=== PATIENT | male | born 1970 | race Caucasian/White ===

== ENCOUNTER 2018-04-02 12:38 | Emergency (ER) | payer OTHER ==
[2018-04-02] MEDS ORDERED: NA CHLORIDE 0.9% 0 ML ONE (14:27)
[2018-04-02 14:43] LABS: Absolute Lymphocytes (CBC) 1.1 K/uL (0.7-4.9); Absolute Monocytes 0.4 K/uL (0.1-1.3); Absolute Neutrophil 3.8 K/uL (1.8-8.0); Basophils % 1.8 % (0-1.3); Eosinophils % 1.4 % (0-4.4); Hematocrit 55.8 % (39.6-49.0); Lymphocytes % 20.6 % (15.3-44.8); MCH 27.9 pg (27.0-35.0); MCV 84.6 fL (80-100); MPV 7.9 fL (7.6-11.3); Monocytes % 7.2 % (3.3-12.3); RBC Red Blood Cell Count 6.59 M/uL (4.33-5.43)
[2018-04-02 14:58] LABS: Urine Blood NEGATIVE (NEG); Urine Glucose NEGATIVE (NEG); Urine Protein NEGATIVE (NEG); Urine Specific Gravity 1.025 (1.005-1.030)
[2018-04-02 15:01] LABS: Albumin 4.2 g/dL (3.4-5.0); Bilirubin Direct 0.2 mg/dL (0-0.2); Bilirubin Total 0.7 mg/dL (0.2-1.0); Magnesium 1.8 mg/dL (1.8-2.4); Potassium 4.3 mmol/L (3.5-5.1)
[2018-04-02] MEDS ORDERED: NA CHLORIDE 0.9% 1,000 ML ONE (15:20)
--- NOTE | 2018-04-02 16:30 | RAD REPORT ---
EXAM DESCRIPTION: CT - Abdomen Pelvis W Contrast - 04/02/2018 4:12 pm CLINICAL HISTORY: Abdominal pain. Diarrhea . Left lower quadrant pain COMPARISON: 2014 TECHNIQUE: Computed axial tomography of the abdomen and pelvis was obtained. 100 cc Isovue-300 is ad ministered intravenously. Oral contrast was given. All CT scans are performed using dose optimization technique as appropriate and may include automated exposure control or mA/KV adjustment according to patient size. 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 Largest measures 22 millimeters Spleen, pancreas, adrenals and kidneys appear unremarkable. There is no evidence of diverticulitis Small right inguinal hernia and small to moderate left inguinal hernias contain fat. IMPRESSION: No acute abnormality displayed 1
--- NOTE | 2018-04-02 16:41 | ER ---
Nurse's Notes [facility] Name: John Suarez Age: 47 yrs Sex: Male : 1970 Arrival Date: 04/02/2018 Time: 12:39 Bed 5 Private MD: Ge Holliday Diagnosis: Diarrhea, unspecified Presentation: 04/02 13:03 Presenting complaint: Patient states: Diarrhea since Saturday night. Today he started to aj1 feel light-headed. Patient denies N/V. Denies fever. Reports LLQ abdominal pain. Transition of care: patient was not received from another setting of care. Onset of symptoms was March 31, 2018. Risk Assessment: Do you want to hurt yourself or someone else? Patient reports no desire to harm self or others. Initial Sepsis Screen: Does the patient meet any 2 criteria? No. Patient's initial sepsis screen is negative. Does the patient have a suspected source of infection? Yes: Acute abdominal pain. Care prior to arrival: None. 13:03 Method Of Arrival: Ambulatory aj 13:03 Acuity: JUAN 3 aj1 Triage Assessment: 13:06 General: Appears in no apparent distress. uncomfortable, Behavior is calm, cooperative, aj1 appropriate for age. Pain: Complains of pain in left lower quadrant Pain currently is 5 out of 10 on a pain scale. Neuro: Level of Consciousness is awake, alert, obeys commands. Cardiovascular: Patient's skin is warm and dry. Respiratory: Airway is patent Respiratory effort is even, unlabored, Respiratory pattern is regular, symmetrical. GI: Reports lower abdominal pain, diarrhea, Patient currently denies nausea, vomiting. Historical: - Allergies: 13:06 Cephalexin Monohydrate; aj1 13:06 Hydrocodone-Acetaminophen; aj1 - Home Meds: 13:06 Lisinopril Oral [Active]; Allopurinol Oral [Active]; Paxil Oral [Active]; Ambien Oral aj1 [Active]; - PMHx: 13:06 Gout; Hypertension; Depression; insomnia; aj1 - PSHx: 13:06 Hernia repair; Knee surgery; shoulder surgery; septum surgery; aj1 - Immunization history:: Flu vaccine is not up to date. - Social history:: Smoking status: Patient/guardian denies using tobacco. - Ebola Screening: : Patient denies travel to an Ebola-affected area in the 21 days before illness onset. Screenin:00 Abuse screen: Denies threats or abuse. Denies injuries from another. Nutritional hb screening: No deficits noted. Tuberculosis screening: No symptoms or risk factors identified. Fall Risk None identified. Assessment: 14:00 General: Appears in no apparent distress. uncomfortable, Behavior is calm, cooperative. hb Pain: Pain currently is 5 out of 10 on a pain scale. Neuro: Level of Consciousness is awake, alert, obeys commands, Oriented to person, place, time, situation. Cardiovascular: Capillary refill < 3 seconds Patient's skin is warm and dry. Respiratory: Airway is patent Trachea midline Respiratory effort is even, unlabored, Respiratory pattern is regular, symmetrical, Breath sounds are clear bilaterally. GI: Abdomen is non-distended, Bowel sounds present X 4 quads. Abd is soft and non tender X 4 quads. Reports diarrhea. : No signs and/or symptoms were reported regarding the genitourinary system. EENT: No signs and/or symptoms were reported regarding the EENT system. Derm: No signs and/or symptoms reported regarding the dermatologic system. Skin is pink, warm \T\ dry. Musculoskeletal: No signs and/or symptoms reported regarding the musculoskeletal system. 15:00 Reassessment: Patient appears in no apparent distress at this time. No changes from hb previously documented assessment. Patient and/or family updated on plan of care and expected duration. Pain level reassessed. Patient is alert, oriented x 3, equal unlabored respirations, skin warm/dry/pink. 16:00 Reassessment: Patient appears in no apparent distress at this time. No changes from hb previously documented assessment. Patient and/or family updated on plan of care and expected duration. Pain level reassessed. Patient is alert, oriented x 3, equal unlabored respirations, skin warm/dry/pink. Vital Signs: 13:06 BP 149 / 108; Pulse 89; Resp 18; Temp 98.6; Pulse Ox 95% on R/A; Weight 97.07 kg (R); aj1 Height 5 ft. 10 in. (177.80 cm) (R); Pain 5/10; 14:37 BP 141 / 101 Supine; Pulse 69; Resp 16; Pulse Ox 96% on R/A; dh3 14:39 BP 146 / 111 Sitting; Pulse 81; Resp 17; Pulse Ox 97% on R/A; dh3 14:41 BP 134 / 106 Standing; Pulse 79; Resp 18; Pulse Ox 98% on R/A; dh3 15:30 BP 138 / 102; Pulse 88; Resp 16; Pulse Ox 100% ; hb 13:06 Body Mass Index 30.71 (97.07 kg, 177.80 cm) aj1 ED Course: 12:39 Patient arrived in ED. as 12:39 Ge Holliday MD is Private Physician. as 13:05 Triage completed. aj1 13:06 Arm band placed on Patient placed in waiting room, Patient notified of wait time. aj1 13:45 Kemar Whitehead PA is PHCP. cp 13:45 Abdullahi Pitt MD is Attending Physician. cp 14:25 Urine collected: clean catch specimen, clear. 3 14:27 Initial lab(s) drawn, by me, sent to lab. Inserted saline lock: 18 gauge in right 3 antecubital area, using aseptic technique. Blood collected. 15:11 Obed Denney, RN is Primary Nurse. sg 16:12 CT Abd/Pelvis - W/Contrast: give oral contrast In Process Unspecified. EDMS 16:13 CT completed. Patient tolerated procedure well. Patient moved back from CT. madie Administered Medications: 14:32 Drug: NS 0.9% 1000 ml Route: IV; Rate: 1 bolus; Site: right antecubital; hb 15:15 Drug: NS 0.9% 1000 ml Route: IV; Rate: 1 bolus; Site: right antecubital; hb 15:15 Drug: NS 0.9% 1000 ml Route: IV; Rate: 100 ml/hr; Site: right antecubital; hb Outcome: 16:41 Discharge ordered by MD. cp 17:25 Patient left the ED. hb Signatures: Dispatcher [employer] EDMS Rosita Wood RN RN aj1 Obed Denney, Sandrine Barbosa RN, Corey, PA PA cp Baxter, Heather, RN RN hb Jordan, Nathan nj Herrera, Deanna 3
--- NOTE | 2018-04-02 16:41 | EDPHYS ---
Physician Documentation [facility] Name: John Suarez Age: 47 yrs Sex: Male : 1970 Arrival Date: 04/02/2018 Time: 12:39 Bed 5 Private MD: Ge Holliday ED Physician Abdullahi Pitt HPI: 04/02 14:00 This 47 yrs old Male presents to ER via Ambulatory with complaints of cp Abdominal Pain, Diarrhea. 14:00 The patient presents with abdominal pain. Onset: The symptoms/episode began/occurred 3 cp day(s) ago. Associated signs and symptoms: Pertinent positives: diarrhea, Pertinent negatives: nausea and vomiting, blood in stools, chest pain, constipation, fever, shortness of breath, testicular pain. Historical: - Allergies: 13:06 Cephalexin Monohydrate; aj1 13:06 Hydrocodone-Acetaminophen; aj1 - Home Meds: 13:06 Lisinopril Oral [Active]; Allopurinol Oral [Active]; Paxil Oral [Active]; Ambien Oral aj1 [Active]; - PMHx: 13:06 Gout; Hypertension; Depression; insomnia; aj1 - PSHx: 13:06 Hernia repair; Knee surgery; shoulder surgery; septum surgery; aj1 - Immunization history:: Flu vaccine is not up to date. - Social history:: Smoking status: Patient/guardian denies using tobacco. - Ebola Screening: : Patient denies travel to an Ebola-affected area in the 21 days before illness onset. ROS: 14:05 Constitutional: Negative for body aches, chills, fever, poor PO intake. cp 14:05 Eyes: Negative for injury, pain, redness, and discharge. cp 14:05 ENT: Negative for drainage from ear(s), ear pain, sore throat, difficulty swallowing, difficulty handling secretions. 14:05 Cardiovascular: Negative for chest pain, edema, palpitations. 14:05 Respiratory: Negative for cough, shortness of breath, wheezing. 14:05 Abdomen/GI: Positive for abdominal pain, diarrhea, Negative for nausea and vomiting, vomiting, constipation, anorexia, black/tarry stool, rectal bleeding. 14:05 Back: Negative for radiated pain. 14:05 : Negative for urinary symptoms, testicular pain 14:05 Skin: Negative for cellulitis, rash. 14:05 Neuro: Positive for lightheaded, Negative for altered mental status, headache, syncope, near syncope, weakness. 14:05 All other systems are negative. Exam: 14:12 Constitutional: The patient appears in no acute distress, alert, awake, non-toxic, well cp developed, well nourished. 14:12 Head/Face: Normocephalic, atraumatic. cp 14:12 Eyes: Periorbital structures: appear normal, Conjunctiva: normal, no exudate, no injection, Sclera: no appreciated abnormality, Lids and lashes: appear normal, bilaterally. 14:12 ENT: External ear(s): are unremarkable, Nose: is normal, Mouth: Lips: moist, Oral mucosa: pink and intact, moist, Posterior pharynx: is normal, airway is patent, no erythema, no exudate. 14:12 Neck: ROM/movement: is normal, is supple, without pain, no range of motions limitations, no nuchal rigidity. 14:12 Chest/axilla: Inspection: normal, Palpation: is normal, no crepitus, no tenderness. 14:12 Cardiovascular: Rate: normal, Rhythm: regular. 14:12 Respiratory: the patient does not display signs of respiratory distress, Respirations: normal, no use of accessory muscles, no retractions, no splinting, no tachypnea, labored breathing, is not present, Breath sounds: are clear throughout, no decreased breath sounds, no stridor, no wheezing. 14:12 Abdomen/GI: Inspection: abdomen appears normal, Bowel sounds: active, all quadrants, Palpation: soft, in all quadrants, mild abdominal tenderness, in the left upper quadrant and left lower quadrant, rebound tenderness, is not appreciated, involuntary guarding, is not appreciated. 14:12 Back: pain, is absent, ROM is normal. 14:12 Skin: cellulitis, is not appreciated, no rash present. Vital Signs: 13:06 BP 149 / 108; Pulse 89; Resp 18; Temp 98.6; Pulse Ox 95% on R/A; Weight 97.07 kg (R); aj1 Height 5 ft. 10 in. (177.80 cm) (R); Pain 5/10; 14:37 BP 141 / 101 Supine; Pulse 69; Resp 16; Pulse Ox 96% on R/A; dh3 14:39 BP 146 / 111 Sitting; Pulse 81; Resp 17; Pulse Ox 97% on R/A; dh3 14:41 BP 134 / 106 Standing; Pulse 79; Resp 18; Pulse Ox 98% on R/A; dh3 15:30 BP 138 / 102; Pulse 88; Resp 16; Pulse Ox 100% ; hb 13:06 Body Mass Index 30.71 (97.07 kg, 177.80 cm) aj1 MDM: 13:45 Patient medically screened. cp 14:00 Differential diagnosis: appendicitis, bowel obstruction, diverticulitis, gastritis, cp pancreatitis, Pyelonephritis, Testicular Torsion, Ureterolithiasis, urinary tract infection. 16:40 Data reviewed: vital signs, nurses notes, lab test result(s), radiologic studies, CT cp scan. 16:40 Counseling: I had a detailed discussion with the patient and/or guardian regarding: the cp historical points, exam findings, and any diagnostic results supporting the discharge/admit diagnosis, lab results, radiology results, to return to the emergency department if symptoms worsen or persist or if there are any questions or concerns that arise at home. Response to treatment: the patient's symptoms have markedly improved after treatment, VSS. Pain improved, and as a result, I will discharge patient. Special discussion: Based on the patient's Hx, exam, and Dx evaluation, there is no indication for emergent surgery or inpatient Tx. It is understood by the patient/guardian that if the Sx's persist or worsen they need to return immediately for re-evaluation. 04/02 13:57 Order name: Basic Metabolic Panel; Complete Time: 15:03 cp 04/02 15:03 Interpretation: Normal except: CRE 1.40; GFR 54. cp 04/02 13:57 Order name: CBC with Diff; Complete Time: 15:03 cp 04/02 15:04 Interpretation: Normal except: RBC 6.59; HGB 18.4; HCT 55.8; MCV 84.6; RDW 15.7; BASO% cp 1.8. 04/02 13:57 Order name: Creatinine for Radiology; Complete Time: 15:03 cp 04/02 13:57 Order name: Hepatic Function; Complete Time: 15:03 cp 04/02 13:57 Order name: Lipase; Complete Time: 15:03 cp 04/02 13:57 Order name: Magnesium; Complete Time: 15:03 cp 04/02 13:52 Order name: Orthostatics; Complete Time: 14:42 cp 04/02 13:57 Order name: CT Abd/Pelvis - W/Contrast: give oral contrast; Complete Time: 16:32 cp 04/02 14:47 Order name: Urine Dipstick--Ancillary (enter results); Complete Time: 15:03 bd 04/02 13:57 Order name: IV Saline Lock; Complete Time: 14:32 cp 04/02 13:57 Order name: Labs collected and sent; Complete Time: 14:32 cp 04/02 13:57 Order name: Urine Dipstick-Ancillary (obtain specimen); Complete Time: 14:32 cp 04/02 16:32 Order name: PO challenge; Complete Time: 17:10 cp Administered Medications: 14:32 Drug: NS 0.9% 1000 ml Route: IV; Rate: 1 bolus; Site: right antecubital; hb 15:15 Drug: NS 0.9% 1000 ml Route: IV; Rate: 1 bolus; Site: right antecubital; hb 15:15 Drug: NS 0.9% 1000 ml Route: IV; Rate: 100 ml/hr; Site: right antecubital; hb Disposition: 18:24 Co-signature as Attending Physician, Abdullahi Pitt MD. Disposition: 04/02/18 16:41 Discharged to Home. Impression: Diarrhea, unspecified. - Condition is Stable. - Discharge Instructions: Food Choices to Help Relieve Diarrhea, Adult, Diarrhea, Adult. - Prescriptions for Zofran 4 mg Oral Tablet - take 1 tablet by ORAL route every 12 hours As needed; 20 tablet. Lomotil 2.5- 0.025 mg Oral Tablet - take 1 tablet by ORAL route every 6 hours As needed; 20 tablet. - Medication Reconciliation Form, Thank You Letter, Antibiotic Education, Prescription Opioid Use, Work release form form. - Follow up: Private Physician; When: 1 - 2 days; Reason: Recheck today's complaints. - Problem is new. - Symptoms have improved. Signatures: Dispatcher [employer] Rosita Church RN RN aj1 Kemar Whitehead PA PA cp Baxter, Heather, RN RN hb Starr, Gregory, MD MD gs Corrections: (The following items were deleted from the chart) 17:25 16:41 04/02/2018 16:41 Discharged to Home. Impression: Diarrhea, unspecified. Condition hb is Stable. Forms are Medication Reconciliation Form, Thank You Letter, Antibiotic Education, Prescription Opioid Use. Follow up: Private Physician; When: 1 - 2 days; Reason: Recheck today's complaints. Problem is new. Symptoms have improved. cp
== END 2018-04-02 17:25 | disposition home or self-care (01) ==
LOC: ER 12:38
DX: R19.7 Diarrhea, unspecified (principal); I10 Essential (primary) hypertension; F32.9 Major depressive disorder, single episode, unspecified; Z88.5 Allergy status to narcotic agent; Z88.8 Allergy status to other drugs, medicaments and biological substances
CPT/HCPCS: 36415; 74177; 80048; 80076; 81003; 83690; 83735; 85025; J7030; Q9967

== ENCOUNTER 2018-09-06 19:35 | Observation (INO) | payer OTHER ==
[2018-09-06] MEDS ORDERED: FENTANYL CITR 100 MCG/2 ML ONE (20:44)
[2018-09-06] MEDS ORDERED: ONDANSETRON 4 MG/2 ML VIAL ONE ×2 (20:44→22:49)
[2018-09-06 20:59] LABS: Absolute Lymphocytes (CBC) 0.9 K/uL (0.7-4.9); Absolute Monocytes 0.6 K/uL (0.1-1.3); Absolute Neutrophil 4.1 K/uL (1.8-8.0); Basophils % 0.4 % (0-1.3); Eosinophils % 1.5 % (0-4.4); Hematocrit 50.9 % (39.6-49.0); Lymphocytes % 16.3 % (15.3-44.8); MPV 7.9 fL (7.6-11.3); Monocytes % 11.2 % (3.3-12.3); RBC Red Blood Cell Count 6.03 M/uL (4.33-5.43)
--- NOTE | 2018-09-06 21:02 | RAD REPORT ---
EXAM DESCRIPTION: CTAbdomen Pelvis W Contrast - 09/06/2018 8:54 pm CLINICAL HISTORY: Abdominal pain. LLQ abd pain. NO oral contrast. COMPARISON: Abdomen Pelvis W Contrast dated 04/02/2018; CT ABD PELVIS W CONTRAST dated 05/24/2015 TECHNIQUE: Biphasic CT imaging of the abdomen and pelvis was performed with 100 ml non-ionic IV cont rast. All CT scans are performed using dose optimization technique as appropriate and may include automated exposure control or mA/KV adjustment according to patient size. FINDINGS: Linear opacities are present in both lung bases compatible with subsegmental atelectasis. The liver demonstrates no intra or extrahepatic biliary dilatation. 21 mm lesion in the right lobe li agnieszka is seen, suspected to represent a hemangioma. No aggressive liver lesion. The spleen, pancreas, a drenal glands and kidneys are within normal limits. Dilated small bowel loops are seen in the central abdomen with mild fold thickening. No free air, charmaine e fluid or abscess. The appendix is not identified as a discrete structure, however, no secondary fin dings of appendicitis are identified. No evidence of significant lymphadenopathy. No suspicious bony findings. IMPRESSION: Mildly dilated and thickened small bowel loops in the mid and lower abdomen may represen t enteritis or an early/ partial mechanical small-bowel obstruction. Followup imaging in 24-48 hours may be considered if clinical symptomology persists or progresses.
[2018-09-06 21:39] LABS: Albumin 3.8 g/dL (3.4-5.0); Bilirubin Direct 0.2 mg/dL (0-0.2); Bilirubin Total 0.7 mg/dL (0.2-1.0); Potassium 4.2 mmol/L (3.5-5.1); Protein, Total 7.4 g/dL (6.4-8.2)
[2018-09-06] MEDS ORDERED: ACETAMINOPHEN 500 MG TAB PO PRN (22:36)
[2018-09-06] MEDS ORDERED: ONDANSETRON 4 MG/2 ML VIAL IV PRN (22:36)
[2018-09-06] MEDS ORDERED: MORPHINE 2 MG/ML SYR IV PRN (22:36)
--- NOTE | 2018-09-06 23:08 | EDPHYS ---
Physician Documentation [facility] Name: John Suarez Age: 48 yrs Sex: Male : 1970 Arrival Date: 09/06/2018 Time: 19:35 Bed 14 Private MD: Ge Holliday ED Physician Tim Singh Historical: - Allergies: 09/06 19:58 Cephalexin Monohydrate; dm5 19:58 Hydrocodone-Acetaminophen; dm5 - Home Meds: 19:58 Allopurinol Oral [Active]; Ambien Oral [Active]; Paxil Oral [Active]; dm5 losartan-hydrochlorothiazide 50-12.5 mg oral tab 1 tab once daily [Active]; - PMHx: 19:58 Depression; Gout; Hypertension; insomnia; dm5 - PSHx: 19:58 Hernia repair; orthoscopic left knee; left rotator cuff; deviated septum; dm5 - Social history:: Smoking status: Patient/guardian denies using tobacco. Vital Signs: 19:58 BP 146 / 102; Pulse 87; Resp 18; Temp 98; Pulse Ox 95% on R/A; Weight 99.34 kg; Height dm5 5 ft. 10 in. (177.80 cm); Pain 10/10; 21:20 BP 136 / 95; Pulse 73; Resp 16; Pulse Ox 95% on R/A; jb4 22:15 BP 142 / 98; Pulse 75; Resp 18; Pulse Ox 94% on R/A; jb4 23:15 BP 142 / 98; Pulse 72; Resp 18; Pulse Ox 95% on R/A; jb4 09/07 00:15 BP 130 / 88; Pulse 68; Resp 16; Pulse Ox 94% on R/A; jb4 09/06 19:58 Body Mass Index 31.42 (99.34 kg, 177.80 cm) dm5 MDM: 09/06 20:16 Patient medically screened. ps1 09/06 20:18 Order name: CBC with Diff; Complete Time: 21:08 ps1 09/06 20:18 Order name: Creatinine for Radiology; Complete Time: 21:42 ps1 09/06 20:18 Order name: Hepatic Function; Complete Time: 21:42 ps1 09/06 20:18 Order name: Lipase; Complete Time: 21:42 ps1 09/06 20:18 Order name: CMP; Complete Time: 21:42 ps1 09/06 22:45 Order name: Comprehensive Metabolic Panel EDMS 09/06 20:18 Order name: CT Abd/Pelvis - W/Contrast; Complete Time: 21:08 ps1 09/06 22:45 Order name: Comprehensive Metabolic Panel EDMS 09/06 22:45 Order name: Lipid Profile EDMD 09/06 22:45 Order name: Lipid Profile EDMD 09/06 20:18 Order name: IV Saline Lock; Complete Time: 20:49 ps1 09/06 20:18 Order name: Labs collected and sent; Complete Time: 20:49 ps1 09/06 22:46 Order name: CONS Pharmacy Consult EDMS 09/06 22:46 Order name: CONS Physician Consult EDMD 09/06 22:46 Order name: NPO EDMS Administered Medications: 20:42 Drug: Zofran 4 mg Route: IVP; Site: right antecubital; jb4 21:57 Follow up: Response: No adverse reaction; Nausea is decreased jb4 20:45 Drug: fentaNYL (PF) 50 mcg Route: IVP; Site: right antecubital; jb4 21:57 Follow up: Response: No adverse reaction; Pain is decreased jb4 22:15 Drug: fentaNYL (PF) 50 mcg Route: IVP; Site: right antecubital; jb4 23:09 Follow up: Response: No adverse reaction; Pain is decreased jb4 22:20 Drug: Gastrografin Liquid 90 ml {Note: administered by X-ray.} Route: PO; jb4 23:23 Follow up: Response: No adverse reaction jb4 22:30 Drug: Zofran 4 mg Route: IVP; Site: right antecubital; jb4 23:22 Follow up: Response: No adverse reaction; Nausea is decreased jb4 23:45 Drug: morphine 4 mg Route: IVP; Site: right antecubital; jb4 09/07 00:15 Follow up: Response: No adverse reaction; Pain is decreased jb4 Disposition: 09/06/18 23:07 Hospitalization ordered by Ele Laura for Observation. Preliminary diagnosis are LLQ pain, Small Bowel Obstruction. - Bed requested for Telemetry/MedSurg (observation). - Status is Observation. jb4 - Condition is Stable. - Problem is new. - Symptoms are unchanged. UTI on Admission? No Signatures: Dispatcher [employer] EDMD Indigo Ramirez RN RN dm5 Sydney Dent RN RN mw Hussain Jeter RN RN jb4 Tim Singh MD MD ps1 Corrections: (The following items were deleted from the chart) 09/06 23:09 23:07 Hospitalization Ordered by Ele Laura MD for Observation. Preliminary mw diagnosis is LLQ pain; Small Bowel Obstruction. Bed requested for Telemetry/MedSurg (observation). Status is Observation. Condition is Stable. Problem is new. Symptoms are unchanged. UTI on Admission? No. ps1 09/07 00:54 09/06 23:09 09/06/2018 23:07 Hospitalization Ordered by Ele Laura MD for jb4 Observation. Preliminary diagnosis is LLQ pain; Small Bowel Obstruction. Bed requested for Telemetry/MedSurg (observation). Status is Observation. Condition is Stable. Problem is new. Symptoms are unchanged. UTI on Admission? No. mw
--- NOTE | 2018-09-06 23:08 | ER ---
Nurse's Notes [facility] Name: John Suarez Age: 48 yrs Sex: Male : 1970 Arrival Date: 09/06/2018 Time: 19:35 Bed 14 Private MD: Ge Holliday Diagnosis: LLQ pain;Small Bowel Obstruction Presentation: 09/06 19:54 Presenting complaint: Patient states: abdominal pain started yesterday, became severe dm5 today. Vomited once after protein shake. denies nausea or diarrhea. denies previous similar pain. Transition of care: patient was not received from another setting of care. Onset of symptoms was September 04, 2018. Risk Assessment: Do you want to hurt yourself or someone else? Patient reports no desire to harm self or others. Initial Sepsis Screen: Does the patient meet any 2 criteria? No. Patient's initial sepsis screen is negative. Does the patient have a suspected source of infection? No. Patient's initial sepsis screen is negative. Care prior to arrival: None. 19:54 Method Of Arrival: Ambulatory dm5 19:54 Acuity: JUAN 2 dm5 Triage Assessment: 19:58 General: Appears in no apparent distress. uncomfortable, Behavior is cooperative. Pain: dm5 Complains of pain in left upper quadrant and left lower quadrant Pain currently is 10 out of 10 on a pain scale. Quality of pain is described as sharp, stabbing, Pain began 1 day ago. Pain: Alleviated by repositioning. Neuro: Level of Consciousness is awake, alert, obeys commands, Oriented to person, place, time. Cardiovascular: Denies chest pain. Respiratory: Airway is patent Respiratory effort is even, unlabored, Respiratory pattern is regular, symmetrical. GI: Reports lower abdominal pain, upper abdominal pain, vomiting. Derm: Skin is clammy, Skin is pink. Historical: - Allergies: 19:58 Cephalexin Monohydrate; dm5 19:58 Hydrocodone-Acetaminophen; dm5 - Home Meds: 19:58 Allopurinol Oral [Active]; Ambien Oral [Active]; Paxil Oral [Active]; dm5 losartan-hydrochlorothiazide 50-12.5 mg oral tab 1 tab once daily [Active]; - PMHx: 19:58 Depression; Gout; Hypertension; insomnia; dm5 - PSHx: 19:58 Hernia repair; orthoscopic left knee; left rotator cuff; deviated septum; dm5 - Social history:: Smoking status: Patient/guardian denies using tobacco. Screenin:00 Abuse screen: Denies threats or abuse. Nutritional screening: No deficits noted. jb4 Tuberculosis screening: No symptoms or risk factors identified. Fall Risk IV access (20 points). Total Portilol Fall Scale indicates No Risk (0-24 pts). Assessment: 20:00 General: Appears uncomfortable, Behavior is calm, cooperative, appropriate for age. jb4 Pain: Complains of pain in left lower quadrant Pain does not radiate. Pain currently is 10 out of 10 on a pain scale. Neuro: Level of Consciousness is awake, alert, obeys commands, Oriented to person, place, time, situation. Cardiovascular: Patient's skin is warm and dry. Respiratory: Airway is patent Respiratory effort is even, unlabored, Respiratory pattern is regular, symmetrical. GI: Abdomen is round distended, Bowel sounds present X 4 quads. Abd is non tender X 4 quads Abd is rigid X 4 quads. Reports constipation, nausea, vomiting, tarry stool. : No signs and/or symptoms were reported regarding the genitourinary system. EENT: No signs and/or symptoms were reported regarding the EENT system. Derm: Skin is intact, Skin is pink, warm \T\ dry. Musculoskeletal: Circulation, motion, and sensation intact. 21:00 Reassessment: Patient and/or family updated on plan of care and expected duration. Pain jb4 level reassessed. Patient is alert, oriented x 3, equal unlabored respirations, skin warm/dry/pink. Patient states feeling better. 22:00 Reassessment: Patient and/or family updated on plan of care and expected duration. Pain jb4 level reassessed. Patient is alert, oriented x 3, equal unlabored respirations, skin warm/dry/pink. Patient states feeling better. 23:15 Reassessment: Patient and/or family updated on plan of care and expected duration. Pain jb4 level reassessed. Patient is alert, oriented x 3, equal unlabored respirations, skin warm/dry/pink. Pt reports increase in pain, Provider notified, see MAR for orders. 09/07 00:15 Reassessment: Patient and/or family updated on plan of care and expected duration. Pain jb4 level reassessed. Patient is alert, oriented x 3, equal unlabored respirations, skin warm/dry/pink. Patient states feeling better. Vital Signs: 09/06 19:58 BP 146 / 102; Pulse 87; Resp 18; Temp 98; Pulse Ox 95% on R/A; Weight 99.34 kg; Height dm5 5 ft. 10 in. (177.80 cm); Pain 10/10; 21:20 BP 136 / 95; Pulse 73; Resp 16; Pulse Ox 95% on R/A; jb4 22:15 BP 142 / 98; Pulse 75; Resp 18; Pulse Ox 94% on R/A; jb4 23:15 BP 142 / 98; Pulse 72; Resp 18; Pulse Ox 95% on R/A; jb4 09/07 00:15 BP 130 / 88; Pulse 68; Resp 16; Pulse Ox 94% on R/A; jb4 09/06 19:58 Body Mass Index 31.42 (99.34 kg, 177.80 cm) dm5 ED Course: 09/06 19:35 Patient arrived in ED. am2 19:36 Ge Holliday MD is Private Physician. am2 19:56 Triage completed. dm5 19:58 Arm band placed on left wrist. Patient placed in waiting room. dm5 20:00 Patient has correct armband on for positive identification. Placed in gown. Bed in low jb4 position. Call light in reach. Side rails up X 1. Pulse ox on. NIBP on. 20:07 Hussain Jeter RN is Primary Nurse. jb4 20:08 Tim Singh MD is Attending Physician. ps1 20:40 Initial lab(s) drawn, by me, sent to lab. Inserted saline lock: 20 gauge in right jp3 antecubital area, using aseptic technique. Blood collected. 20:54 CT Abd/Pelvis - W/Contrast In Process Unspecified. EDMS 23:05 Ele Laura MD is Hospitalizing Provider. ps1 09/07 00:30 No provider procedures requiring assistance completed. Patient admitted, IV remains in jb4 place. Administered Medications: 09/06 20:42 Drug: Zofran 4 mg Route: IVP; Site: right antecubital; jb4 21:57 Follow up: Response: No adverse reaction; Nausea is decreased jb4 20:45 Drug: fentaNYL (PF) 50 mcg Route: IVP; Site: right antecubital; jb4 21:57 Follow up: Response: No adverse reaction; Pain is decreased jb4 22:15 Drug: fentaNYL (PF) 50 mcg Route: IVP; Site: right antecubital; jb4 23:09 Follow up: Response: No adverse reaction; Pain is decreased jb4 22:20 Drug: Gastrografin Liquid 90 ml {Note: administered by X-ray.} Route: PO; jb4 23:23 Follow up: Response: No adverse reaction jb4 22:30 Drug: Zofran 4 mg Route: IVP; Site: right antecubital; jb4 23:22 Follow up: Response: No adverse reaction; Nausea is decreased jb4 23:45 Drug: morphine 4 mg Route: IVP; Site: right antecubital; jb4 09/07 00:15 Follow up: Response: No adverse reaction; Pain is decreased jb4 Outcome: 09/06 23:07 Decision to Hospitalize by Provider. ps1 09/07 00:30 Admitted to Med/surg accompanied by nurse, family with patient, via stretcher, room jb4 225, with chart, Report called to MARSHALL Sena Condition: stable Discharge instructions given to patient, family, Instructed on the need for admit, Demonstrated understanding of instructions. 00:54 Patient left the ED. jb4 Signatures: Dispatcher [employer] Indigo Pereira RN RN dm5 Hussain Jeter RN RN jb4 Deja Barraza am2 Tim Singh MD MD ps1 Ha Ellis jp3
[2018-09-06] MEDS ORDERED: MORPHINE 4 MG/ML SYR ONE (23:49)
[2018-09-07] MEDS: NA CHLORIDE 0.9% 1,000 ML IV SCH ×3 (01:24→20:59)
[2018-09-07] MEDS: METRONIDAZOLE 500mg IVPB 500 MG/100 ML BAG IV SCH ×4 (01:25→17:16)
[2018-09-07 04:08] LABS: Urine Appearance CLEAR; Urine Bilirubin NEGATIVE (NEG); Urine Blood NEGATIVE (NEG); Urine Color YELLOW; Urine Glucose NEGATIVE (NEG); Urine Protein NEGATIVE (NEG); Urine Specific Gravity >=1.030 (1.005-1.030); Urine Urobilinogen 0.2 mg/dL (0.2-1.0); Urine pH 5.5 (5.0-7.0)
[2018-09-07 04:12] LABS: Urine Microscopic Reflex NO UMIC
[2018-09-07] MEDS: Levofloxacin500mg IV 500 MG/100 ML BAG IV SCH (05:34)
[2018-09-07 06:55] LABS: Absolute Lymphocytes (CBC) 1.4 K/uL (0.7-4.9); Absolute Monocytes 0.7 K/uL (0.1-1.3); Absolute Neutrophil 2.4 K/uL (1.8-8.0); Basophils % 0.5 % (0-1.3); Eosinophils % 3.4 % (0-4.4); Hematocrit 48.2 % (39.6-49.0); Lymphocytes % 29.8 % (15.3-44.8); MPV 8.1 fL (7.6-11.3); Monocytes % 14.4 % (3.3-12.3); RBC Red Blood Cell Count 5.67 M/uL (4.33-5.43)
[2018-09-07 07:04] LABS: Albumin 3.5 g/dL (3.4-5.0); Bilirubin Total 0.6 mg/dL (0.2-1.0); Potassium 3.6 mmol/L (3.5-5.1); Protein, Total 6.6 g/dL (6.4-8.2)
[2018-09-07] MEDS: PARoxetine HCl 10 MG TAB PO SCH ×2 (08:42→09:00)
[2018-09-07] MEDS: LOSARTAN/HCTZ 50-12.5 PO SCH (08:43)
--- NOTE | 2018-09-07 08:50 | RAD REPORT ---
EXAM DESCRIPTION: RAD - Abdomen W Erect - 09/07/2018 8:37 am CLINICAL HISTORY: Abdominal pain FINDINGS: Gastrografin is present throughout nondilated colon. Gastrografin is also seen within small bowel loops are upper limits normal caliber. Air beneath the diaphragm is not seen. Air within dilated small bowel is not visualized
[2018-09-07] MEDS ORDERED: INFLUENZA VACCINE (for 3y+) 0.5 ML DOSE IMVAC ONE (09:00)
--- NOTE | 2018-09-07 16:12 | P.CNS ---
Date of Consult: 09/07/18 PC: This 48-year-old male presents to the emergency room with abdominal pain nausea and vomiting HPC: Patient has been sick for the last 48 hr. Noticed that the nausea vomiting intensified as well as abdominal pain right after he ate some chicken rice soup. PMH: Negative PSHx: NAD SOC: Allergic to hydrocodone SYS REVIEW: No cough, wheeze, shortness of breath. No chest pain or palpitations. States he has been in pretty good health otherwise. O/E awake alert stable HEENT: Within normal limits Chest: Chest movement equal bilateral ABD: Soft nontender LOCO: Intact DATA: CT scan was reviewed IMPRESSION: The patient is issues appear to be resolving. Has minimal pain or discomfort today. PLAN: Increase diet, anticipate discharge soon. Most likely it is GI console so as outpatient regarding possible colonoscopy.
--- NOTE | 2018-09-07 16:56 | PN ---
Subjective: The patient is seen and examined. Chart reviewed and case discussed with RN and Dr. Mixon. The patient is still complaining of some nausea and vomiting after breakfast. Medications: List reviewed. Physical Examination: Vital Signs: Temperature 97.1, heart rate 59, blood pressure 111/79, respirations 16, O2 95% on room air. General: Awake, alert, oriented x3. Some mild distress. Ill-appearing male, obese, BMI 30. CV: S1, S2. Regular rate and rhythm. Peripheral pulses present. Respiratory: Moving air well bilaterally. No wheezing or stridor. Gastrointestinal: Abdomen is distended. Tenderness to palpation. Bowel sounds hypoactive. No rebound or guarding. Extremities: No clubbing, cyanosis, or edema. Neurologic: Nonfocal. Laboratory Data: Sodium 141, potassium 3.6, chloride 106, CO2 32, BUN 17, creatinine 1.37, glucose 105. WBC 4.6, H and H 15.9/48.2, platelets 158, neutrophils 51%. Assessment: A 48-year-old male with: 1. Acute small bowel obstruction. We will keep n.p.o. Surgery consultation has been sought. We will follow up with Dr. Mixon's recommendations. Encourage ambulation. The patient states he is passing minimal amount of gas. 2. Obesity, BMI 30.6. 3. Gout, on allopurinol. 4. Major depressive disorder, in remission on SSRI medications, currently on hold due to small bowel obstruction. 5. Essential hypertension, stable. We will add p.r.n. medications if blood pressure is elevated over 160. 6. Deep vein thrombosis prophylaxis. SCDs and ambulation. 7. LETTY: Monitor Creatnine. IVFs. Likely due to acute dehydration, pre renal azotemia. Plan: Continue antibiotics. Keep n.p.o. Ambulate. Try conservative measures initially for small bowel obstruction. If not improving, may need surgical intervention, Dr. Mixon on board. The patient will transfer services to Dr. Holliday once he is back in town. /TOSHIA Voice ID: [id number] Report ID: [id number] MTDD
[2018-09-07] MEDS ORDERED: ZOLPIDEM TARTRATE 10 MG TABLET PO SCH (21:00)
[2018-09-07] MEDS ORDERED: ALLOPURINOL 300 MG TAB PO SCH (21:00)
--- NOTE | 2018-09-07 22:35 | P.HP ---
Certification for Inpatient Patient admitted to: Observation With expected LOS: <2 Midnights Patient will require the following post-hospital care: None Practitioner: I am a practitioner with admitting privileges, knowledge of patient current condition, hospital course, and medical plan of care. Services: Services provided to patient in accordance with Admission requirements found in Title 42 Section 412.3 of the Code of Federal Regulations Patient History Date of Service: 09/06/18 Reason for admission: Partial small-bowel obstruction History of Present Illness: The patient is a 48-year-old gentleman came to the hospital with abdominal pain. Patient had intractable nausea and vomiting. Patient denies any diarrhea. He has had some abdominal distention as well. In the emergency room had a chest x-ray and abdominal x-ray which revealed a small-bowel obstruction. Patient was given Gastrografin. Will repeat the x-ray in the morning and see if it has gone all the way through. Patient will be admitted to the hospital for further observation. Allergies cephalexin monohydrate [From Keflex] Allergy (Verified 09/07/18 00:54) Hives/Rash Hydrocodone-A Allergy (Intermediate, Uncoded 09/07/18 00:54) Hives/Rash Home Medications: Allopurinol 1 tab PO BEDTIME 09/07/18 Losartan/Hydrochlorothiazide [Losartan-Hctz 50-12.5 mg Tab] 1 tab PO DAILY 09/07 Paroxetine HCl [Paxil] 1 tab PO DAILY 09/07/18 Zolpidem Tartrate 1 tab PO BEDTIME 09/07/18 - Past Medical/Surgical History Diabetic: No -: htn -: hyperlipidemia -: insomnia -: gout -: major depression disorder -: rotator cuff repair left -: ab knee repair -: deviated septum -: hernia - Family History Mother Medical History: Hypertension, Lung disease Notes: afib Father Medical History: Heart disease, Hypertension, Lung disease, Diabetes Brother Medical History: GI disease, Cancer Notes: colon cancer - Social History Smoking Status: Never smoker Alcohol use: Yes CD- Drugs: No Caffeine use: No Place of Residence: Home Review of Systems 10-point ROS is otherwise unremarkable Physical Examination - Vital Signs Temperature: 97.5 F Blood Pressure: 114/73 Pulse: 63 Respirations: 18 Pulse Ox (%): 95 - Physical Exam General: Alert, In no apparent distress, Oriented x3 HEENT: Atraumatic, PERRLA, Mucous membr. moist/pink, EOMI, Sclerae nonicteric Neck: Supple, 2+ carotid pulse no bruit, No LAD, Without JVD or thyroid abnormality Respiratory: Clear to auscultation bilaterally, Normal air movement Cardiovascular: Regular rate/rhythm, Normal S1 S2, No murmurs Gastrointestinal: Normal bowel sounds, Soft and benign, Non-distended, Absent bowel sounds Musculoskeletal: No clubbing, No swelling, No tenderness Integumentary: No rashes Neurological: Normal gait, Normal speech, Normal strength at 5/5 x4 extr, Normal tone, Sensation intact, Normal affect Lymphatics: No axilla or inguinal lymphadenopathy Assessment & Plan - Problems (Diagnosis) (1) Partial small bowel obstruction Current Visit: Yes Status: Acute (2) Hypertension Current Visit: Yes Status: Acute - Plan Plan: 1. IV fluids and IV antibiotics 2. monitor electrolytes 3. General surgeon consultation 4. Pain control 5. Outpatient colonoscopy 6. Repeat abdominal film if pain worsens to rule out perforation 7. GI and DVT prophylaxis Discharge Plan: Home Plan to discharge in: 48 Hours - Advance Directives Does patient have a Living Will: No Does patient have a Durable POA for Healthcare: No - Code Status/Comfort Care Code Status Assessed: Yes Code Status: Full Code Critical Care: No Time Spent Managing PTS Care (In Minutes): 45
[2018-09-08] MEDS: METRONIDAZOLE 500mg IVPB 500 MG/100 ML BAG IV SCH ×3 (00:05→11:22)
[2018-09-08] MEDS: Levofloxacin500mg IV 500 MG/100 ML BAG IV SCH (04:05)
[2018-09-08] MEDS: NA CHLORIDE 0.9% 1,000 ML IV SCH ×2 (04:10→05:57)
[2018-09-08 07:02] LABS: Albumin 3.1 g/dL (3.4-5.0); Bilirubin Total 0.5 mg/dL (0.2-1.0); Magnesium 2.1 mg/dL (1.8-2.4); Potassium 3.9 mmol/L (3.5-5.1); Protein, Total 6.3 g/dL (6.4-8.2)
[2018-09-08] MEDS: LOSARTAN/HCTZ 50-12.5 PO SCH (08:33)
[2018-09-08] MEDS: PARoxetine HCl 10 MG TAB PO SCH (08:34)
== END 2018-09-08 17:33 | disposition home or self-care (01) ==
LOC: ER 19:35 → ERHOLD 23:08 → 2ND 09-07 00:21
PROVIDERS: ADMIT Family Medicine; ATTEND Hospitalist
DX: K56.609 Unspecified intestinal obstruction, unspecified as to partial versus complete obstruction (principal); E66.9 Obesity, unspecified; Z68.30 Body mass index [BMI] 30.0-30.9, adult; M10.9 Gout, unspecified; F32.9 Major depressive disorder, single episode, unspecified; I10 Essential (primary) hypertension
CPT/HCPCS: 36415; 74019; 74177; 80053; 80061; 80076; 81003; 83690; 83735; 85025; 94760; 96374; 96375; 99285; G0378; J2270; J2405; J3010; J7030; Q9967

== ENCOUNTER 2023-07-03 13:54 | Observation (INO) | payer OTHER ==
[2023-07-03] MEDS ORDERED: METOCLOPRAMIDE 10 MG/2mL INJ ONE (14:26)
[2023-07-03] MEDS ORDERED: NA CHLORIDE 0.9% 1,000 ML ONE (14:26)
[2023-07-03] MEDS ORDERED: MORPHINE 2 MG/ML SYR ONE (14:26)
[2023-07-03 14:36] LABS: Absolute Lymphocytes (CBC) 1.8 K/uL (0.7-4.9); Hematocrit 46.9 % (39.6-49.0); Lymphocytes % 29.5 % (15.3-44.8); MCV 88.8 fL (80-100); MPV 7.5 fL (7.6-11.3); Platelets 173 thou/uL (152-406); RBC Red Blood Cell Count 5.28 M/uL (4.33-5.43)
--- NOTE | 2023-07-03 14:43 | RAD REPORT ---
EXAM DESCRIPTION: CT - Ct Stroke Brain Wo Cont - 07/03/2023 2:26 pm CLINICAL HISTORY: Blurred vision COMPARISON: July 2022 TECHNIQUE: Computed axial tomography of the head was obtained. All CT scans are performed using dose optimization technique as appropriate and may include automated exposure control or mA/KV adjustment according to patient size. FINDINGS: An intracranial bleed is not seen . The ventricles are normal in caliber. No extra-axial fluid collection is noted. No significant hypodensity within the brain Fluid within the sinuses/ mastoids is not seen. IMPRESSION: No acute intracranial abnormality is seen. If patient's symptoms persist MRI of the bra in would be recommended Cira Zuniga of the emergency room was notified at 2:25 p.m. July 03 1023
[2023-07-03 14:46] LABS: Protime INR 1.15
--- NOTE | 2023-07-03 14:46 | RAD REPORT ---
EXAM DESCRIPTION: CTHead angio07/03/2023 2:26 pm CLINICAL HISTORY: Blurred vision COMPARISON: none TECHNIQUE: 100 cc Isovue [address] angiogram of the head was obtained. 3D MIPS reconstruction performed. All CT scans are performed using dose optimization technique as appropriate and may include automated exposure control or mA/KV adjustment according to patient size. FINDINGS: The distal internal carotid, basilar, anterior cerebral, middle cerebral and posterior cer ebral arteries do not demonstrate a significant stenosis An aneurysm is not seen No large vessel occlusion IMPRESSION: No significant abnormality is displayed
--- NOTE | 2023-07-03 14:47 | RAD REPORT ---
EXAM DESCRIPTION: Danay Angio07/03/2023 2:26 pm CLINICAL HISTORY: Blurred vision COMPARISON: None TECHNIQUE: 100 cc Isovue [address] angiogram of the neck was obtained. 3D MIPS reconstruction performed. All CT scans are performed using dose optimization technique as appropriate and may include automated exposure control or mA/KV adjustment according to patient size. FINDINGS: common carotid, internal carotid and external carotid arteries bilaterally are unremarkabl e Vertebral arteries unremarkable No dissection is seen. No high-grade stenosis IMPRESSION: No significant abnormality is displayed Nascet crieria Mild stenosis 0 to 49 % Moderate stenosis 50-69% Severe stenosis 70-99%
[2023-07-03 14:54] LABS: Potassium 3.8 mEq/L (3.5-5.1); Troponin High Sensitivity 4.8 pg/mL (<58.9)
--- NOTE | 2023-07-03 15:15 | RAD REPORT ---
EXAM DESCRIPTION: Jose Single View07/03/2023 2:31 pm CLINICAL HISTORY: Headache, blurred vision COMPARISON: none FINDINGS: The lungs appear clear of acute infiltrate. The heart is normal size IMPRESSION: No acute abnormalities displayed
[2023-07-03] MEDS ORDERED: ASPIRIN 81 MG CHEWABLE TABLET ONE (15:47)
--- NOTE | 2023-07-03 15:49 | ER ---
Nurse's Notes [facility] – [place], [place] Name: John Suarez Age: 52 yrs Sex: Male : 1970 Arrival Date: 07/03/2023 Time: 13:54 Bed 6 Private MD: Diagnosis: Headache;Other visual disturbances Presentation: 07/03 14:09 Chief complaint: EMS states: brought patient from work due to blurred vision to left ld1 eye and headache since last night. Coronavirus screen: At this time, the client does not indicate any symptoms associated with coronavirus-19. Ebola Screen: No symptoms or risks identified at this time. Initial Sepsis Screen: Does the patient meet any 2 criteria? No. Patient's initial sepsis screen is negative. Does the patient have a suspected source of infection? No. Patient's initial sepsis screen is negative. Risk Assessment: Do you want to hurt yourself or someone else? Patient reports no desire to harm self or others. Onset of symptoms was July 03, 2023. 14:09 Method Of Arrival: EMS: [facility] ld1 14:09 Acuity: JUAN 2 ld1 Triage Assessment: 14:10 Headache History: Denies prior headaches. General: Appears in no apparent distress. ld1 comfortable, Behavior is calm, cooperative, appropriate for age. Pain: Complains of pain in face Pain does not radiate. Pain currently is 8 out of 10 on a pain scale. Quality of pain is described as throbbing, Pain began 1 day ago. Is continuous. EENT: Reports blurred vision in outer aspect of conjuctiva of left eye, iris of left eye and inner aspect of conjunctiva of left eye. Neuro: Level of Consciousness is awake, alert, obeys commands, Oriented to person, place, time, situation. Cardiovascular: Capillary refill < 3 seconds Patient's skin is warm and dry. Respiratory: Airway is patent Respiratory effort is even, unlabored. GI: Abdomen is round non-distended. : No signs and/or symptoms were reported regarding the genitourinary system. Derm: No signs and/or symptoms reported regarding the dermatologic system. Musculoskeletal: No signs and/or symptoms reported regarding the musculoskeletal system. 18:07 Pain: Also complains of no other associated symptoms. ld1 Historical: - Allergies: 14:10 Cephalexin Monohydrate; ld1 14:10 Hydrocodone-Acetaminophen; ld1 - PMHx: 14:10 Depression; Gout; Hypertension; insomnia; ld1 - PSHx: 14:10 None; ld1 - Immunization history:: Adult Immunizations up to date. - Social history:: Smoking status: Patient denies any tobacco usage or history of. Patient/guardian denies using alcohol. - Family history:: not pertinent. - Hospitalizations: : No recent hospitalization is reported. Screenin:18 [facility] ED Fall Risk Assessment (Adult) History of falling in the last 3 months, ld1 including since admission No falls in past 3 months (0 pts). Abuse screen: Denies threats or abuse. Denies injuries from another. Nutritional screening: No deficits noted. Tuberculosis screening: No symptoms or risk factors identified. VAN Screening: Arm Drift: Patient shows no arm weakness. Patient is VAN negative. Visual Disturbance: Field Cut: Abnormal visual pozo noted. Provider notified of VAN + scoring. Left eye blurred vision. Dorys Swallow Protocol Brief Cognitive Screen What is your name? Normal, Where are you right now? Normal, What year is it? Normal. Oral Mechanism Examination Facial Symmetry: Normal, Motion: Normal, Lip Closure: Normal, Oral Mechanism Result: Normal. 3 oz Water Swallow Challenge: Pt able to drink all water without stopping, coughing, choking or throat clearing: Yes Result: PASS MD Notified: Garth Warren MD. Assessment: 14:17 Reassessment: Pt to CT now. ld1 15:00 Reassessment: Patient appears in no apparent distress at this time. No changes from ld1 previously documented assessment. Patient and/or family updated on plan of care and expected duration. Pain level reassessed. Patient is alert, oriented x 3, equal unlabored respirations, skin warm/dry/pink. 16:15 Reassessment: Patient appears in no apparent distress at this time. No changes from ld1 previously documented assessment. Patient and/or family updated on plan of care and expected duration. Pain level reassessed. Patient is alert, oriented x 3, equal unlabored respirations, skin warm/dry/pink. 17:03 Reassessment: Patient appears in no apparent distress at this time. No changes from ld1 previously documented assessment. Patient and/or family updated on plan of care and expected duration. Pain level reassessed. Patient is alert, oriented x 3, equal unlabored respirations, skin warm/dry/pink. Vital Signs: 14:09 BP 153 / 91; Pulse 75; Resp 18; Temp 98.6(TE); Pulse Ox 100% on R/A; Weight 48.53 kg; ld1 Height 5 ft. 10 in. ; Pain 0/10; 14:30 BP 142 / 89; Pulse 80; Resp 14; Pulse Ox 97% on R/A; ld1 14:59 BP 142 / 89; Pulse 72; Resp 18; Pulse Ox 96% on R/A; ld1 15:00 BP 161 / 98; Pulse 69; Resp 17; Pulse Ox 97% on R/A; ld1 15:30 BP 168 / 113; Pulse 73; Resp 20; Pulse Ox 97% on R/A; ld1 16:00 BP 178 / 109; Pulse 68; Resp 17; Pulse Ox 96% on R/A; ld1 16:39 BP 124 / 82; Pulse 64; Resp 18; Pulse Ox 100% on R/A; ld1 14:09 Body Mass Index 15.35 (48.53 kg, 177.8 cm) ld1 14:09 Pain Scale: Adult ld1 [place] Coma Score: 15:47 Eye Response: spontaneous(4). Motor Response: obeys commands(6). Verbal Response: rn oriented(5). Total: 15. NIH Stroke Scale Scores: 14:18 NIHSS Score: 1 ld1 ED Course: 14:04 Patient arrived in ED. rn 14:04 Garth Warren MD is Attending Physician. rn 14:08 Jeanine Burnette RN is Primary Nurse. ld1 14:10 Triage completed. ld1 14:10 Arm band placed on right wrist. ld1 14:17 Inserted saline lock: 20 gauge in right antecubital area, using aseptic technique. ld1 Blood collected. 14:18 Patient has correct armband on for positive identification. Placed in gown. Bed in low ld1 position. Call light in reach. Side rails up X2. monitoring and evaluation advisor on. Pulse ox on. NIBP on. Door closed. Noise minimized. Warm blanket given. 14:18 No provider procedures requiring assistance completed. Patient maintains SpO2 ld1 saturation greater than 95% on room air. 14:28 CT Head Angio In Process Unspecified. EDMS 14:28 CT Neck Angio In Process Unspecified. EDMS 14:28 CT Stroke Brain w/o Contrast In Process Unspecified. EDMS 14:33 Stroke CXR 1 View In Process Unspecified. EDMS 15:48 Ge Holliday MD is Hospitalizing Provider. rn 18:07 Patient admitted, IV remains in place. ld1 Administered Medications: 14:32 Drug: metoCLOPramide IVP 10 mg IVP once; over 1 to 2 minutes Route: IVP; Site: right ko1 antecubital; 14:32 Drug: NS 0.9% IV 1000 ml IV at 1000 ml once Route: IV; Rate: 1000 ml; Site: right ko1 antecubital; 14:32 Drug: morphine IVP or IV 2 mg IVP once over 4 mins Route: IVP; Infused Over: 4 mins; ko1 Site: right antecubital; 15:49 Drug: Aspirin PO Chewable Tablet 324 mg PO once; 81 mg tablets x 4 Route: PO; ko1 Medication: 18:08 VIS not applicable for this client. ld1 Outcome: 15:49 Decision to Hospitalize by Provider. rn 18:07 Admitted to Med/surg accompanied by [employer], via wheelchair, room 205, Report called to ld1 MARSHALL Salazar 18:07 Condition: stable 18:07 Instructed on the need for admit, 18:08 Patient left the ED. ld1 NIH Stroke Scale - NIH Stroke Score Date: 07/03/2023 Time: 14:18 Total Score = 1 10. Dysarthria (speech clarity - read or repeat words) - 0(Normal) 11. Extinction and Inattention (visual/tactile/auditory/spatial/personal) - 0(No abnormality) 1a. Level of Consciousness (LOC) - 0(Alert) 1b. Level of Consciousness (LOC) (Month \T\ Age) - 0(Both) 1c. LOC Commands (Open \T\ Closes Eyes/Stem Crusher) - 0(Both) 2. Best Gaze (Lateral Gaze Paresis) - 0(Normal) 3. Visual Field Loss - 1(Partial hemianopia) 4. Facial Palsy - 0(Normal) 5a. Left Arm: Motor (10-second hold) - 0(No drift) 5b. Right Arm: Motor (10-second hold) - 0(No drift) 6a. Left Leg: Motor (5-second hold - always test supine) - 0(No drift) 6b. Right Leg: Motor (5-second hold - always test supine) - 0(No drift) 7. Limb Ataxia (finger/nose \T\ heel/keith - test with eyes open) - 0(Absent) 8. Sensory Loss (pinprick arms/legs/face) - 0(Normal) 9. Best Language: Aphasia (description/naming/reading) - 0(No aphasia) Initials: ld1 Signatures: Dispatcher [employer] EDGarth Penny MD MD rn Sims, Lauren, RN RN ld1 Lisa Mckinley RN RN ko1
--- NOTE | 2023-07-03 15:49 | EDPHYS ---
Physician Documentation [facility] Name: John Suarez Age: 52 yrs Sex: Male : 1970 Arrival Date: 07/03/2023 Time: 13:54 Bed 6 Private MD: ED Physician Garth Warren HPI: 07/03 14:54 This 52 yrs old Male presents to ER via EMS with complaints of Blurred Vision, Headache rn > 24hrs Old. 14:54 The patient complains of pain to the left side of the back of head, left occipital area rn and left base of the skull. The patient describes the headache as aching. 14:54 Onset: The symptoms/episode began/occurred last night. Associated signs and symptoms: rn Pertinent negatives: fever, neck stiffness, rash, vision loss, vomiting, weakness, vertigo. Severity of symptoms: At its worst the pain was moderate, in the emergency department the pain is unchanged. The symptoms are alleviated by nothing. the symptoms are aggravated by nothing. The patient has not experienced similar symptoms in the past. Patient reports headache that began last night, posterior and along left occiput/neck. Got better last night with [id number] medication but returned this morning. Was at work and headache worsened and now associated with blurred vision in the left eye. No loss of vision. No trauma. No other focal neurological deficits. Patient has history of migraines when he was a teenager but has not had migraines since then. No temporal pain.. Historical: - Allergies: 14:10 Cephalexin Monohydrate; ld1 14:10 Hydrocodone-Acetaminophen; ld1 - PMHx: 14:10 Depression; Gout; Hypertension; insomnia; ld1 - PSHx: 14:10 None; ld1 - Immunization history:: Adult Immunizations up to date. - Social history:: Smoking status: Patient denies any tobacco usage or history of. Patient/guardian denies using alcohol. - Family history:: not pertinent. - Hospitalizations: : No recent hospitalization is reported. ROS: 14:54 Constitutional: Negative for fever, chills, and weight loss, Eyes: Positive for blurred rn vision left eye Neck: Positive for posterior pain along base of skull and neck Cardiovascular: Negative for chest pain, palpitations, and edema, Respiratory: Negative for shortness of breath, cough, wheezing, and pleuritic chest pain, Abdomen/GI: Negative for abdominal pain, nausea, vomiting, diarrhea, and constipation, MS/Extremity: Negative for injury and deformity, Skin: Negative for injury, rash, and discoloration, Neuro: Positive for headache on the left side posteriorly Exam: 14:35 ECG was reviewed by the Attending Physician. rn 14:54 Constitutional: This is a well developed, well nourished patient who is awake, alert, rn and in no acute distress. Head/Face: Normocephalic, atraumatic. No tenderness over left temporal region Eyes: Pupils equal round and reactive to light, extra-ocular motions intact. Lids and lashes normal. Conjunctiva and sclera are non-icteric and not injected. Cornea within normal limits. Periorbital areas with no swelling, redness, or edema. Neck: Trachea midline, no masses palpated, and no cervical lymphadenopathy. Supple, full range of motion without nuchal rigidity, or vertebral point tenderness. No Meningismus. Cardiovascular: Regular rate and rhythm. No pulse deficits. Respiratory: Speaking full sentences, unlabored. No increased work of breathing, no retractions or nasal flaring. Skin: Warm, dry Neuro: Awake and alert, GCS 15, oriented to person, place, time, and situation. Cranial nerves II-XII grossly intact. Motor strength 5/5 in all extremities. Sensory grossly intact. Cerebellar exam normal. Vital Signs: 14:09 BP 153 / 91; Pulse 75; Resp 18; Temp 98.6(TE); Pulse Ox 100% on R/A; Weight 48.53 kg; ld1 Height 5 ft. 10 in. ; Pain 0/10; 14:30 BP 142 / 89; Pulse 80; Resp 14; Pulse Ox 97% on R/A; ld1 14:59 BP 142 / 89; Pulse 72; Resp 18; Pulse Ox 96% on R/A; ld1 15:00 BP 161 / 98; Pulse 69; Resp 17; Pulse Ox 97% on R/A; ld1 15:30 BP 168 / 113; Pulse 73; Resp 20; Pulse Ox 97% on R/A; ld1 16:00 BP 178 / 109; Pulse 68; Resp 17; Pulse Ox 96% on R/A; ld1 16:39 BP 124 / 82; Pulse 64; Resp 18; Pulse Ox 100% on R/A; ld1 14:09 Body Mass Index 15.35 (48.53 kg, 177.8 cm) ld1 14:09 Pain Scale: Adult ld1 NIH Stroke Scale Scores: 14:18 NIHSS Score: 1 ld1 [place] Coma Score: 15:47 Eye Response: spontaneous(4). Motor Response: obeys commands(6). Verbal Response: rn oriented(5). Total: 15. MDM: 14:04 Patient medically screened. rn 14:28 ED course: CT head negative for acute findings. Consulted with Dr. Luther, does not rn believe that this patient is a TNKase candidate, headache began last night and sounds more like migraine or headache. Patient has had a history of migraines in his teenage years and could represent bimodal distribution with return. Patient without temporal tenderness. Patient with improvement but not resolution. Per consultation with Dr. Luther, will not administer TNKase. 14:58 ED course: Patient denies any pain of the eye itself.. rn 15:47 Differential diagnosis: cluster headache, hypertensive headache, intracerebral rn hemorrhage, migraine, neoplasm, subarachnoid bleed, subdural hematoma, tension headache, trigeminal neuralgia, vasomotor headache, Ocular migraine, complicated or complex migraine. Data reviewed: vital signs, nurses notes, lab test result(s), radiologic studies, CT scan, and as a result, I will admit patient. Consideration of Admission/Observation Patient was admitted/placed on observation. Escalation of care including admission/observation considered. Management of patient was discussed with the following: Primary Care Provider: Dr. Holliday, agrees with admission and neurological consultation as well as MRI. Counseling: I had a detailed discussion with the patient and/or guardian regarding the historical points, exam findings, and any diagnostic results supporting the discharge/admit diagnosis, lab results, radiology results, the need for further work-up and treatment in the hospital. Response to treatment: the patient's symptoms have mildly improved after treatment. ED course: Treated headache with headache cocktail and pain medication with that not being the patient should improve as well. Pain is resolved but still has some blurred vision. Decision made to put in the hospital for neurological consultation and MRI to rule out any other causes.. 07/03 14:05 Order name: Basic Metabolic Panel; Complete Time: 14:57 rn 07/03 14:05 Order name: CBC with Diff; Complete Time: 14:57 rn 07/03 14:05 Order name: High Sensitivity Troponin; Complete Time: 14:57 rn 07/03 14:05 Order name: Protime (+inr); Complete Time: 14:57 rn 07/03 14:05 Order name: Ptt, Activated; Complete Time: 14:57 rn 07/03 14:39 Order name: Glucose, Ancillary Testing; Complete Time: 14:57 EDMS 07/03 14:05 Order name: CT Head Angio; Complete Time: 14:57 rn 07/03 14:05 Order name: CT Neck Angio; Complete Time: 14:57 rn 07/03 14:05 Order name: CT Stroke Brain w/o Contrast; Complete Time: 14:57 rn 07/03 14:05 Order name: Stroke CXR 1 View; Complete Time: 15:22 rn 07/03 16:28 Order name: Brain Wo Cont; Complete Time: 16:58 EDMS 07/03 14:05 Order name: EKG; Complete Time: 14:06 rn 07/03 14:05 Order name: Accucheck; Complete Time: 14:28 rn 07/03 14:05 Order name: Cardiac monitoring; Complete Time: 14:31 rn 07/03 14:05 Order name: EKG - Nurse/Tech; Complete Time: 14:31 rn 07/03 14:05 Order name: IV Saline Lock; Complete Time: 14:16 07/03 14:05 Order name: Labs collected and sent; Complete Time: 14:16 07/03 14:05 Order name: NPO; Complete Time: 14:16 07/03 14:05 Order name: O2 Per Protocol; Complete Time: 14:16 07/03 14:05 Order name: O2 Sat Monitoring; Complete Time: 14:17 07/03 14:05 Order name: Stroke Swallow Screen; Complete Time: 14:17 rn EC:35 Rate is 79 beats/min. Rhythm is regular. QRS [place] is Normal. MA interval is normal. QRS rn interval is normal. QT interval is normal. No Q waves. T waves are Normal. No ST changes noted. Clinical impression: Normal ECG. Interpreted by me. Reviewed by me. Administered Medications: 14:32 Drug: metoCLOPramide IVP 10 mg IVP once; over 1 to 2 minutes Route: IVP; Site: right ko1 antecubital; 14:32 Drug: NS 0.9% IV 1000 ml IV at 1000 ml once Route: IV; Rate: 1000 ml; Site: right ko1 antecubital; 14:32 Drug: morphine IVP or IV 2 mg IVP once over 4 mins Route: IVP; Infused Over: 4 mins; ko1 Site: right antecubital; 15:49 Drug: Aspirin PO Chewable Tablet 324 mg PO once; 81 mg tablets x 4 Route: PO; ko1 Disposition Summary: 07/03/23 15:49 Hospitalization Ordered Notes: Hospitalization Status: Observation rn Provider: Ge Holliday rn Location: Telemetry/MedSurg (observation) rn Condition: Stable rn Problem: new rn Symptoms: have improved rn Bed/Room Type: Standard rn Room Assignment: 205(07/03/23 16:53) bd Diagnosis - Headache rn - Other visual disturbances rn Forms: - Medication Reconciliation Form rn - SBAR form rn - Leadership Thank You Letter rn NIH Stroke Scale - NIH Stroke Score Date: 07/03/2023 Time: 14:18 Total Score = 1 10. Dysarthria (speech clarity - read or repeat words) - 0(Normal) 11. Extinction and Inattention (visual/tactile/auditory/spatial/personal) - 0(No abnormality) 1a. Level of Consciousness (LOC) - 0(Alert) 1b. Level of Consciousness (LOC) (Month \T\ Age) - 0(Both) 1c. LOC Commands (Open \T\ Closes Eyes/Guard Captain) - 0(Both) 2. Best Gaze (Lateral Gaze Paresis) - 0(Normal) 3. Visual Field Loss - 1(Partial hemianopia) 4. Facial Palsy - 0(Normal) 5a. Left Arm: Motor (10-second hold) - 0(No drift) 5b. Right Arm: Motor (10-second hold) - 0(No drift) 6a. Left Leg: Motor (5-second hold - always test supine) - 0(No drift) 6b. Right Leg: Motor (5-second hold - always test supine) - 0(No drift) 7. Limb Ataxia (finger/nose \T\ heel/keith - test with eyes open) - 0(Absent) 8. Sensory Loss (pinprick arms/legs/face) - 0(Normal) 9. Best Language: Aphasia (description/naming/reading) - 0(No aphasia) Initials: ld1 Signatures: Dispatcher [employer] EDMS Mouna Roberts Roman, MD MD rn Sims, Lauren, RN RN ld1 Lisa Mckinley RN RN ko1 Corrections: (The following items were deleted from the chart) 16:28 15:44 MR STROKE PROTOCOL+MRI.RAD.JOSEZ ordered. EDMS EDMS 16:53 15:49 lizabeth peguero
--- NOTE | 2023-07-03 16:56 | RAD REPORT ---
EXAM DESCRIPTION: MRI - Brain Wo Cont - 07/03/2023 4:41 pm CLINICAL HISTORY: Blurred vision COMPARISON: Head CT July 03, 2023 TECHNIQUE: Axial, sagittal, and coronal magnetic resonance images of the brain were obtained. FINDINGS: No significant abnormal signal within the brain is noted. Diffusion-weighted/ADC mapping does not reveal evidence of acute infarction. The ventricles are normal caliber. An extra-axial fluid collection is not noted. Fluid within the sinuses/mastoids is not seen IMPRESSION: No acute intracranial abnormality noted
[2023-07-03] MEDS ORDERED: ONDANSETRON 4 MG/2 ML VIAL IV PRN (19:29)
[2023-07-03] MEDS ORDERED: MORPHINE 4 MG/ML SYR IV PRN (19:29)
[2023-07-03] MEDS: NA CHLORIDE 0.9% 1,000 ML IV SCH (21:29)
[2023-07-03 21:30] VITALS: BMI 32.3
[2023-07-04 03:34] LABS: Hematocrit 44.8 % (39.6-49.0); Lymphocytes % 34.1 % (15.3-44.8); MCV 90.4 fL (80-100); MPV 7.7 fL (7.6-11.3); Platelets 172 thou/uL (152-406); RBC Red Blood Cell Count 4.95 M/uL (4.33-5.43)
[2023-07-04 03:45] LABS: Potassium 3.8 mEq/L (3.5-5.1)
[2023-07-04] MEDS ORDERED: INFLUENZA VACCINE (for 6+ mo) 0.5 ML DOSE IMVAC ONE (08:00)
[2023-07-04] MEDS: NA CHLORIDE 0.9% 1,000 ML IV SCH (08:32)
[2023-07-04] MEDS ORDERED: ASPIRIN 325 MG TAB PO SCH (09:00)
[2023-07-04 09:58] VITALS: O2SAT 94
[2023-07-04 11:48] VITALS: BP 129/76; TEMP 97.4
--- NOTE | 2023-07-04 14:55 | SS ---
Patient presented to the emergency room on 07/03. He dates his history back to the night before when he was working out, cardio and weights, and felt some discomfort behind the left ear. [facility], felt relatively normal and then as the progressed began having more discomfort in th e same area. He then developed an episode of blurred vision, hypertension, and he was brought to the emergency room at which time the probability of being vascular headache was considered most likely. He was given Reglan. However, his stroke workup also took place including the usual CTs and MRIs. Had CAT scans and angio CTs, all of which were negative. He was given Reglan and admitted for [facility] [place] observation and today he feels back to baseline. He has been up and about, stable vital signs. No evidence of any issues. Of significance, patient states approximately 20 more years ago, had a so mewhat similar episode, was treated as an outpatient with an IV medication and with the same response . He does not have any history of migraines since then. Prophylactic care was also discussed with christine rodriguez. He will be seen next week in the office. Consult was obtained with Dr. Luther who treated him for concussion approximately a year ago. He was discharged in good condition. Diagnosis: Vascular headache. HR/MODL Voice ID: [id number] Report ID: [id number]
--- NOTE | 2023-07-05 13:28 | EKG ---
Test Date: 2023-07-03 Test Time: 14:31:04 Accounts Receivable Supervisor: Jhon HARE MEASUREMENT RESULTS: Intervals: Rate: 0 [place]: QRSD: 0 QT: 0 QTc: 0 [place]: P: [place]: QRS: 0 T: 0 INTERPRETIVE STATEMENTS: No QRS complexes found, no ECG analysis possible Compared to ECG 05/20/2006 07:36:40 Sinus rhythm no longer present Electronically Signed On 07-05-23 13:24:26 [employer] MYS[employer] WEB DEVELOPER by Mark Orr
== END 2023-07-04 15:26 | disposition home or self-care (01) ==
LOC: ER 13:54 → INTOOBSV 16:42 → ERHOLD 16:42 → 2ND 17:22
PROVIDERS: ADMIT Family Medicine; ATTEND Family Medicine
DX: R51.9 Headache, unspecified (principal); H53.8 Other visual disturbances; I10 Essential (primary) hypertension; Z23 Encounter for immunization; Z88.5 Allergy status to narcotic agent
CPT/HCPCS: 93005; 85025 ×2; 80048 ×2; 36415; 85610; 82947; 85730; 84484; 70496; 70498; 70450; 71045; 90471; 70551; 96375; 96374; 99285; Q9967; Q2035; J2765; J2270; J7030 ×3; G0378 ×3

== ENCOUNTER 2024-05-25 20:49 | Emergency (ER) | payer OTHER ==
[2024-05-25 21:27] LABS: Absolute Eosinophils 0.1 K/uL (0-0.5); Absolute Lymphocytes (CBC) 2.3 K/uL (0.7-4.9); Absolute Monocytes 0.6 K/uL (0.1-1.3); Absolute Neutrophil 4.2 K/uL (1.8-8.0); Basophils % 0.6 % (0-1.3); Hematocrit 51.6 % (39.6-49.0); Hemoglobin 17.7 g/dL (13.6-17.9); Lymphocytes % 31.7 % (15.3-44.8); MCH 30.7 pg (27.0-35.0); MCHC 34.3 g/dL (32.0-36.0); MCV 89.5 fL (80-100); MPV 7.5 fL (7.6-11.3); Monocytes % 7.9 % (3.3-12.3); Neutrophils % 57.8 % (41.7-73.7); Nucleated Red Blood Cells % 0.1 % (0-0); Platelets 188 thou/uL (152-406); RBC Red Blood Cell Count 5.76 M/uL (4.33-5.43)
[2024-05-25 21:32] LABS: PT Prothrombin Time 11.6 SECONDS (9.4-12.5); Protime INR 1.04
[2024-05-25 21:46] LABS: Albumin 3.7 g/dL (3.4-5.0); Anion Gap 8.7 mEq/L (5.0-15.0); Bilirubin Direct 0.2 mg/dL (0-0.2); Bilirubin Indirect, Calculated 0.4 mg/dL (0.2-0.8); Bilirubin Total 0.6 mg/dL (0.2-1.0); Globulin 3.6 g/dL (2.3-3.5); Magnesium 2.2 mg/dL (1.6-2.4); Potassium 3.7 mEq/L (3.5-5.1); Protein, Total 7.3 g/dL (6.4-8.2); Troponin High Sensitivity 3.4 pg/mL (<58.9)
--- NOTE | 2024-05-25 21:56 | RAD REPORT ---
EXAMINATION: ONE VIEW CHEST XR CLINICAL INDICATION: Male, 53 years old.,CHEST PAIN TECHNIQUE: Frontal chest projection is submitted. Examination is limited by patient positioning and t echnique. COMPARISON: 07/03/2023 FINDINGS: The lungs are well inflated and clear. No pneumothorax or sizable effusion. The heart is normal in s ize. Mediastinal contours are unremarkable. IMPRESSION: No acute intrathoracic abnormalities.
--- NOTE | 2024-05-25 23:57 | ER ---
Nurse's Notes [facility] Name: John Suarez Age: 53 yrs Sex: Male : 1970 Arrival Date: 05/25/2024 Time: 20:49 Bed 13 Private MD: Diagnosis: Chest pain, unspecified Presentation: 05/25 21:04 Chief complaint: Patient states: LEFT SIDED CHEST PAIN THAT HE DESCRIBES PRESSURE cm10 AND BURNING ONSET 2HRS AGO. PT STATES THAT THE PAIN RADIATES TO HIS NECK. Coronavirus screen: Client denies travel out of the [place] in the last 14 days. Ebola Screen: Patient denies travel to an Ebola-affected area in the 21 days before illness onset. No symptoms or risks identified at this time. Initial Sepsis Screen: Does the patient meet any 2 criteria? No. Patient's initial sepsis screen is negative. Does the patient have a suspected source of infection? No. Patient's initial sepsis screen is negative. Risk Assessment: Do you want to hurt yourself or someone else? Patient reports no desire to harm self or others. Onset of symptoms was May 25, 2024. 21:04 Method Of Arrival: Ambulatory cm10 21:04 Acuity: JUAN 2 cm10 Historical: - Allergies: 21:05 Cephalexin Monohydrate; cm10 21:05 Hydrocodone-Acetaminophen; cm10 - PMHx: 21:05 Depression; Gout; Hypertension; insomnia; cm10 - Immunization history:: Adult Immunizations up to date. - Infectious Disease History:: Denies. - Social history:: Smoking status: Patient denies any tobacco usage or history of. Screenin:00 [facility] ED Fall Risk Assessment (Adult) History of falling in the last 3 months, ay including since admission No falls in past 3 months (0 pts) Confusion or Disorientation No (0 pts) Intoxicated or Sedated No (0 pts) Impaired Gait No (0 pts) Mobility Assist Device Used No (0 pt) Altered Elimination No (0 pt) Score/Fall Risk Level 0 - 2 = Low Risk Oriented to surroundings, Maintained a safe environment, Educated pt \T\ family on fall prevention, incl call for assistance when getting out of bed. Abuse screen: Denies threats or abuse. Nutritional screening: On. Nutritional screening: No deficits noted. Tuberculosis screening: No symptoms or risk factors identified. Assessment: 21:10 General: Appears in no apparent distress. comfortable, Behavior is calm, cooperative. ay Pain: Complains of pain in chest Pain does not radiate. Pain currently is 7 out of 10 on a pain scale. Pain: Pain began 4 hours ago. Neuro: Level of Consciousness is awake, alert, obeys commands, Oriented to person, place, time, situation, Harness And Bag Inspector are equal bilaterally Speech is normal. Cardiovascular: Heart tones S1 S2 Capillary refill < 3 seconds Rhythm is regular. Respiratory: Airway is patent Respiratory effort is even, unlabored. GI: Abdomen is round. : No signs and/or symptoms were reported regarding the genitourinary system. EENT: No signs and/or symptoms were reported regarding the EENT system. Derm: No signs and/or symptoms reported regarding the dermatologic system. Musculoskeletal: No signs and/or symptoms reported regarding the musculoskeletal system. Vital Signs: 21:00 BP 140 / 95; Pulse 61; Resp 18; Pulse Ox 96% on R/A; ay 21:04 BP 140 / 92; Pulse 65; Resp 20; Temp 98.6(O); Pulse Ox 95% on R/A; Weight 101.6 kg; cm10 Height 5 ft. 10 in. ; Pain 7/10; 22:00 BP 133 / 88; Pulse 60; Resp 18; Pulse Ox 96% on 2 lpm NC; ay 23:30 BP 130 / 91; Pulse 58; Resp 18; Pulse Ox 97% on 2 lpm NC; ay 21:04 Body Mass Index 32.14 (101.60 kg, 177.8 cm) cm10 21:04 Pain Scale: Adult cm10 Vitals: 21:00 Cardiac Rhythm Assessment Regular. ay Bishop Coma Score: 21:00 Eye Response: spontaneous(4). Motor Response: obeys commands(6). Verbal Response: ay oriented(5). Total: 15. ED Course: 21:00 Patient has correct armband on for positive identification. Placed in gown. Bed in low ay position. Call light in reach. Side rails up X 1. Adult w/ patient. Client placed on continuous cardiac and pulse oximetry monitoring. NIBP monitoring applied. monitoring coordinator on. 21:00 No provider procedures requiring assistance completed. Inserted saline lock: 20 gauge. ay Patient maintains SpO2 saturation greater than 95% on room air. 21:01 Patient arrived in ED. vc1 21:01 Lawrence Mane MD is Attending Physician. sp3 21:05 Triage completed. cm10 21:06 Bethel Camacho, RN is Primary Nurse. ay 21:06 Arm band placed on right wrist. Patient placed in an exam room, on color television console monitor, on cm10 pulse oximetry. 21:06 EKG done, by ED staff, reviewed by Lawrence Mane MD. cm10 21:39 XRAY Chest (1 view) In Process Unspecified. EDMS 23:30 Provided Education on: Procedure Consent. ay 23:30 IV discontinued. ay Administered Medications: No medications were administered Medication: 21:00 VIS not applicable for this client. ay Outcome: 23:30 Discharged to home ambulatory, ay 23:30 Condition: stable 23:30 Discharge instructions given to patient, significant other, 23:56 Discharge ordered by . sp3 12/ 00:14 Patient left the ED. ay Signatures: Dispatcher [employer] EDMN Lawrence Mane MD MD sp3 Shu Foreman RN RN vc1 Lillian Rider, RN RN cm10 Bethel Camacho, MARSHALL RN ay
--- NOTE | 2024-05-25 23:57 | EDPHYS ---
Physician Documentation [facility] Name: John Suarez Age: 53 yrs Sex: Male : 1970 Arrival Date: 05/25/2024 Time: 20:49 Bed 13 Private MD: ED Physician Lawrence Mane HPI: 05/25 21:16 This 53 yrs old Male presents to ER via Ambulatory with complaints of Chest Pain. sp3 21:16 53-year-old male with a history of depression, gout, hypertension with negative stress sp3 test and cardiac workup over the last [address] Orr now presents to the ED with chief complaint chest pain that started earlier today in the afternoon. Patient states that the pain goes from his left chest into his left shoulder. He denies any shortness of breath, crushing chest pain, syncope, near syncope, back pain, cough, congestion, abdominal pain, nausea, vomiting, headache, or any other signs or symptoms on ROS at this time. He does not smoke, does not have any known sick contacts and has not had any prolonged immobilization.. Historical: - Allergies: 21:05 Cephalexin Monohydrate; cm10 21:05 Hydrocodone-Acetaminophen; cm10 - PMHx: 21:05 Depression; Gout; Hypertension; insomnia; cm10 - Immunization history:: Adult Immunizations up to date. - Infectious Disease History:: Denies. - Social history:: Smoking status: Patient denies any tobacco usage or history of. ROS: 21:17 Constitutional: Negative for fever, chills, and weight loss, Eyes: Negative for injury, sp3 pain, redness, and discharge, ENT: Negative for injury, pain, and discharge, Neck: Negative for injury, pain, and swelling, Respiratory: Negative for shortness of breath, cough, wheezing, and pleuritic chest pain, Abdomen/GI: Negative for abdominal pain, nausea, vomiting, diarrhea, and constipation, : Negative for injury, bleeding, discharge, and swelling, MS/Extremity: Negative for injury and deformity, Skin: Negative for injury, rash, and discoloration, Neuro: Negative for headache, weakness, numbness, tingling, and seizure, Psych: Negative for depression, anxiety, suicide ideation, homicidal ideation, and hallucinations, Allergy/Immunology: Negative for hives, rash, and allergies, Endocrine: Negative for neck swelling, polydipsia, polyuria, polyphagia, and marked weight changes, Hematologic/Lymphatic: Negative for swollen nodes, abnormal bleeding, and unusual bruising, 21:17 All other systems are negative, Exam: 21:09 ECG was reviewed by the Attending Physician. EKG demonstrates normal sinus rhythm at 62 sp3 bpm with normal intervals, normal QRS, normal axis, normal ST/T-segment's without evidence of acute ischemia. 21:17 Constitutional: This is a well developed, well nourished patient who is awake, alert, sp3 and in no acute distress. Head/Face: Normocephalic, atraumatic. Eyes: Pupils equal round and reactive to light, extra-ocular motions intact. Lids and lashes normal. Conjunctiva and sclera are non-icteric and not injected. Cornea within normal limits. Periorbital areas with no swelling, redness, or edema. Neck: Trachea midline, no thyromegaly or masses palpated, and no cervical lymphadenopathy. Supple, full range of motion without nuchal rigidity, or vertebral point tenderness. No Meningismus. Chest/axilla: Normal chest wall appearance and motion. Nontender with no deformity. No lesions are appreciated. Cardiovascular: Regular rate and rhythm with a normal S1 and S2. No gallops, murmurs, or rubs. Normal PMI, no JVD. No pulse deficits. Respiratory: Lungs have equal breath sounds bilaterally, clear to auscultation and percussion. No rales, rhonchi or wheezes noted. No increased work of breathing, no retractions or nasal flaring. Abdomen/GI: Soft, non-tender, with normal bowel sounds. No distension or tympany. No guarding or rebound. No evidence of tenderness throughout. Back: No spinal tenderness. No costovertebral tenderness. Full range of motion. Skin: Warm, dry with normal turgor. Normal color with no rashes, no lesions, and no evidence of cellulitis. MS/ Extremity: Pulses equal, no cyanosis. Neurovascular intact. Full, normal range of motion. Neuro: Awake and alert, GCS 15, oriented to person, place, time, and situation. Cranial nerves II-XII grossly intact. Motor strength 5/5 in all extremities. Sensory grossly intact. Cerebellar exam normal. Normal gait. Psych: Awake, alert, with orientation to person, place and time. Behavior, mood, and affect are within normal limits. Vital Signs: 21:00 BP 140 / 95; Pulse 61; Resp 18; Pulse Ox 96% on R/A; ay 21:04 BP 140 / 92; Pulse 65; Resp 20; Temp 98.6(O); Pulse Ox 95% on R/A; Weight 101.6 kg; cm10 Height 5 ft. 10 in. ; Pain 7/10; 22:00 BP 133 / 88; Pulse 60; Resp 18; Pulse Ox 96% on 2 lpm NC; ay 23:30 BP 130 / 91; Pulse 58; Resp 18; Pulse Ox 97% on 2 lpm NC; ay 21:04 Body Mass Index 32.14 (101.60 kg, 177.8 cm) cm10 21:04 Pain Scale: Adult cm10 Tahir Coma Score: 21:00 Eye Response: spontaneous(4). Motor Response: obeys commands(6). Verbal Response: ay oriented(5). Total: 15. MDM: 21:02 Medical Screening Exam initiated sp3 21:18 Data reviewed: vital signs, nurses notes, old medical records, lab test result(s), EKG, sp3 radiologic studies. ED course: 53-year-old male with chest pain with PMH above. Differential diagnosis includes acute coronary syndrome, gastritis, esophageal reflux, musculoskeletal pain, pleurisy, among others. I am not highly suspicious for PE, pneumonia, bronchitis, aortic pathology, or any other critical process including sepsis and shock. Patient will likely have low heart score once initial troponin is back. EKG is normal. Negative stress test in the last 6 months. If second troponin is negative, and remainder of workup is negative, we will safely discharge patient home to cardiology follow-up.. 22:01 ED course: Initial workup negative. Second troponin at 2315 and if negative we will sp3 safely discharge home.. 23:56 ED course: Second troponin negative. 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 05/25 21:02 Order name: Basic Metabolic Panel; Complete Time: 22:01 sp3 05/25 21: Order name: CBC with Diff; Complete Time: 22: sp3 05/25 21: Order name: LFT's; Complete Time: 22:01 sp3 12/02 21:02 Order name: Magnesium; Complete Time: 22:01 sp3 05/25 21:02 Order name: NT PRO-BNP; Complete Time: 22:01 sp3 05/25 21:02 Order name: PT-INR; Complete Time: 22:01 sp3 05/25 21:02 Order name: Troponin HS; Complete Time: 22:01 sp3 05/25 21:09 Order name: Troponin High Sensitivity: Draw 2 hours after first; Complete Time: 23:56 sp3 05/25 21:02 Order name: XRAY Chest (1 view); Complete Time: 22:01 sp3 05/25 21:02 Order name: Cardiac monitoring; Complete Time: 21:22 sp3 05/25 21:02 Order name: EKG - Nurse/Tech; Complete Time: 21:04 sp3 05/25 21:02 Order name: IV Saline Lock; Complete Time: 21:19 sp3 05/25 21:02 Order name: Labs collected and sent; Complete Time: 21: sp3 05/25 21:02 Order name: O2 Per Protocol; Complete Time: 21: sp3 05/25 21:02 Order name: O2 Sat Monitoring; Complete Time: 21:20 sp3 Administered Medications: No medications were administered Disposition Summary: 05/25/24 23:56 Discharge Ordered Notes: Location: Home sp3 Condition: Stable sp3 Diagnosis - Chest pain, unspecified sp3 Followup: sp3 - With: Private Physician - When: Upon discharge from the Emergency Department - Reason: Continuance of care Discharge Instructions: - Discharge Summary Sheet sp3 - Nonspecific Chest Pain, Adult sp3 Forms: - Medication Reconciliation Form sp3 - Antibiotic Education sp3 - Prescription Opioid Use sp3 - Patient Portal Instructions sp3 - Leadership Thank You Letter sp3 Signatures: Dispatcher [employer] Lawrence Cook MD MD sp3 Lillian Rider RN RN cm10
[2024-05-26 03:51] VITALS: TEMP 98.6
[2024-05-26 03:54] VITALS: BP 130/91; O2SAT 97
== END 2024-05-26 00:14 | disposition home or self-care (01) ==
LOC: ER 20:49
DX: R07.9 Chest pain, unspecified (principal); I10 Essential (primary) hypertension
CPT/HCPCS: 36415; 71045; 80048; 80076; 83735; 83880; 84484; 85025; 85610; 99284

== ENCOUNTER 2024-05-28 16:05 | Observation (INO) | payer OTHER ==
[2024-05-28 16:44] LABS: Absolute Eosinophils 0.1 K/uL (0-0.5); Absolute Lymphocytes (CBC) 1.8 K/uL (0.7-4.9); Absolute Monocytes 0.5 K/uL (0.1-1.3); Absolute Neutrophil 4.2 K/uL (1.8-8.0); Basophils % 0.3 % (0-1.3); Eosinophils % 2.1 % (0-4.4); Hematocrit 51.5 % (39.6-49.0); Hemoglobin 17.5 g/dL (13.6-17.9); Lymphocytes % 27.7 % (15.3-44.8); MCH 30.5 pg (27.0-35.0); MCHC 34.1 g/dL (32.0-36.0); MCV 89.6 fL (80-100); MPV 7.7 fL (7.6-11.3); Monocytes % 7.2 % (3.3-12.3); Neutrophils % 62.7 % (41.7-73.7); Nucleated Red Blood Cells % 0.2 % (0-0); Platelets 188 thou/uL (152-406); RBC Red Blood Cell Count 5.75 M/uL (4.33-5.43)
[2024-05-28 16:55] LABS: PT Prothrombin Time 11.4 SECONDS (9.4-12.5); Protime INR 1.02
[2024-05-28 17:10] LABS: Anion Gap 7.2 mEq/L (5.0-15.0); Potassium 4.2 mEq/L (3.5-5.1); Troponin High Sensitivity 4.1 pg/mL (<58.9)
--- NOTE | 2024-05-28 17:33 | RAD REPORT ---
EXAMINATION: ONE VIEW CHEST XR CLINICAL INDICATION: Male, 53 years old.,CHEST PAIN TECHNIQUE: Frontal chest projection is submitted. Examination is limited by patient positioning and t echnique. COMPARISON: 05/25/2024 FINDINGS: The lungs are well inflated and clear. No pneumothorax or sizable effusion. The heart is normal in s ize. Mediastinal contours are unremarkable. IMPRESSION: No acute intrathoracic abnormalities.
--- NOTE | 2024-05-28 18:15 | P.HP ---
Certification for Inpatient Patient admitted to: Observation With expected LOS: <2 Midnights Practitioner: I am a practitioner with admitting privileges, knowledge of patient current condition, hospital course, and medical plan of care. Services: Services provided to patient in accordance with Admission requirements found in Title 42 Section 412.3 of the Code of Federal Regulations Patient History Date of Service: 05/28/24 Reason for admission: CP History of Present Illness: 53 yrs old Male with past medical history of hypertension, insomnia, gout, depression was seen by cashier manager in the office and was sent over here for possible angiogram tomorrow . He had retrosternal chest pain for the last 4 days which has been progressively worsening radiate to back and shoulders. Associated with mild shortness of breath. Pain is intermittent pressure-like, no modifying factor. Patient was seen by Dr. Orr today, as the patient continues to have chest pain he was sent to ER for admission and possible heart cath tomorrow. Denies any fever or chills. Denies any nausea vomiting or diarrhea. Patient was assessed in the ER and is admitted for further management Allergies cephalexin monohydrate [From Keflex] Allergy (Verified 09/07/18 00:54) Hives/Rash Hydrocodone-A Allergy (Intermediate, Uncoded 09/07/18 00:54) Hives/Rash Home medications list reviewed: Yes Home Medications: Allopurinol 1 tab PO BEDTIME 09/07/18 Zolpidem Tartrate 1 tab PO BEDTIME 09/07/18 Fluoxetine HCl [Prozac] 60 mg PO BEDTIME 07/03/23 - Past Medical/Surgical History Diabetic: No Past Medical History: Reviewed- Non-Contributory -: htn -: hyperlipidemia -: insomnia -: gout -: major depression disorder Past Surgical History: Reviewed- Non-Contributory -: rotator cuff repair left -: ab knee repair -: deviated septum -: inguinal hernia repair - Family History Mother -: Hypertension, Lung disease Notes: afib, colon cancer Father -: Heart disease, Hypertension, Lung disease, Diabetes Brother -: GI disease, Cancer Notes: colon cancer - Social History Smoking Status: Never smoker Alcohol use: No CD- Drugs: No Caffeine use: Yes Review of Systems 10-point ROS is otherwise unremarkable Physical Examination - Vital Signs Temperature: 97.2 F Blood Pressure: 138/76 Pulse: 78 Respirations: 18 Pulse Ox (%): 94 - Physical Exam General: Alert, In no apparent distress, Oriented x3 HEENT: Atraumatic, Normocephalic Neck: Supple, No Thyromegaly Respiratory: Clear to auscultation bilaterally, Normal air movement Cardiovascular: Regular rate/rhythm, Normal S1 S2 Capillary refill: <2 Seconds Gastrointestinal: Soft and benign, W/out hepatosplenomegaly Musculoskeletal: No clubbing, No swelling Integumentary: No rashes Neurological: Normal speech, Normal strength at 5/5 x4 extr, Cranial nerves 3-12 intact, Normal reflexes 2+ Lymphatics: No axilla or inguinal lymphadenopathy - Studies Laboratory Data (last 24 hrs) 05/28/24 05/28/24 05/28/24 16:35 16:35 16:35 WBC 6.70 Hgb 17.5 Hct 51.5 H Plt Count 188 PT 11.4 INR 1.02 Sodium 139 Potassium 4.2 BUN 19 H Creatinine 1.29 Glucose 143 H Assessment and Plan - Plan Chest pain to rule out ACS Will trend cardiac enzymes Will monitor telemetry Started on aspirin and statin Will get an echocardiogram Cardiology consult Hypertension Antihypertensives titrated Continue home medications and titrate as needed Hyperlipidemia Continue statin Gout Continue home medications and titrate as needed Depression Continue home medications GI/DVT prophylaxis Advanced directive full code Discharge Plan: Home Plan to discharge in: 48 Hours - Advance Directives Does patient have a Living Will: No Does patient have a Durable POA for Healthcare: No - Code Status/Comfort Care Code Status: Full Code Time Spent Managing Pts Care (In Minutes): 48
[2024-05-28] MEDS ORDERED: ONDANSETRON 4 MG/2 ML VIAL IV PRN (18:16)
[2024-05-28] MEDS ORDERED: ACETAMINOPHEN 325 MG TABLET PO PRN (18:16)
--- NOTE | 2024-05-28 18:24 | EDPHYS ---
Physician Documentation [facility] Name: John Suarez Age: 53 yrs Sex: Male : 1970 Arrival Date: 05/28/2024 Time: 16:05 Bed 4 Private MD: ED Physician Garth Warren HPI: 05/28 16:35 This 53 yrs old Male presents to ER via Ambulatory with complaints of Abnormal EKG. rn 18:14 The patient or guardian reports chest pain that is located primarily in the substernal rn area. Onset: 4 day(s) ago. The pain radiates to Associated signs and symptoms: Pertinent positives: shortness of breath, Pertinent negatives: abdominal pain, cough, diaphoresis, lower extremity swelling, lightheadedness, near syncope, palpitations. The chest pain is described as a heaviness. Duration: The patient or guardian reports multiple episodes, that are intermittent. Modifying factors: The symptoms are alleviated by nothing. the symptoms are aggravated by nothing. Severity of pain: At its worst the pain was moderate in the emergency department the pain has improved. The patient has experienced a previous episode. The patient has been recently seen by a physician:. 18:[address] 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 Patient reports seen here and discharged a few days ago. Chest pain improved but returned today, worse with exertion and radiates to the left neck. Strong family history of cardiac disease.. Historical: - Allergies: 16:24 Cephalexin Monohydrate; jl7 16:24 Hydrocodone-Acetaminophen; jl7 - Home Meds: 16:24 allopurinol 300 mg oral tablet [Active]; Fluoxetine 80 mg Oral [Active]; alprazolam 0.5 jl7 mg Oral tablet [Active]; - PMHx: 16:24 Depression; Gout; Hypertension; insomnia; jl7 - Immunization history:: Adult Immunizations unknown. - Infectious Disease History:: Denies. - Social history:: Smoking status: Patient denies any tobacco usage or history of. - Family history:: not pertinent. - Hospitalizations: : No recent hospitalization is reported. ROS: 18:14 Constitutional: Negative for fever, chills, and weight loss, Cardiovascular: Negative rn for palpitations, and edema, Respiratory: Negative for shortness of breath, cough, wheezing, and pleuritic chest pain, Abdomen/GI: Negative for abdominal pain, nausea, vomiting, diarrhea, and constipation, MS/Extremity: Negative for injury and deformity, Skin: Negative for injury, rash, and discoloration, Neuro: Negative for headache, weakness, numbness, tingling, and seizure, Exam: 18:14 Constitutional: This is a well developed, well nourished patient who is awake, alert, rn and in no acute distress. Cardiovascular: Regular rate and rhythm. No pulse deficits. Respiratory: No increased work of breathing, no retractions or nasal flaring. Abdomen/GI: Soft, non-tender MS/ Extremity: Pulses equal, no cyanosis. Neuro: Awake and alert, GCS 15 19:34 ECG was reviewed by the Attending Physician. rn Vital Signs: 16:21 BP 153 / 99; Pulse 79; Resp 17; Temp 98.7; Pulse Ox 98% ; Weight 100.7 kg; Height 5 ft. jl7 10 in. ; Pain 8/10; 17:23 BP 133 / 85; Pulse 74; Resp 18; Pulse Ox 95% on R/A; ph 18:01 BP 131 / 81; Pulse 70; Resp 16; Pulse Ox 97% on R/A; jb4 18:30 BP 131 / 81; Pulse 81; Resp 18; Pulse Ox 98% on R/A; ph 19:00 BP 123 / 93; Pulse 64; Resp 18; Pulse Ox 96% on R/A; al5 16:21 Body Mass Index 31.85 (100.70 kg, 177.8 cm) jl7 16:21 Pain Scale: Adult jl7 MDM: 16:09 Medical Screening Exam initiated rn 18:14 Differential diagnosis: acute myocardial infarction, acute pericarditis, anxiety, rn coronary artery disease gastroesophageal reflux disease (GERD), stable angina, unstable angina. HEART Score: History: Moderately Suspicious (1), ECG: Non specific repolarization disturbance / LBTB / PM (1), Age: > 45 and < 65 years (1), Risk Factors: 1 or 2 risk factors (1), Troponin: < or = 1 x Normal Limit (0), Total Score = 4. The patient was given aspirin in the Emergency Department. Data reviewed: vital signs, nurses notes, lab test result(s), EKG, radiologic studies, plain films, and as a result, I will admit patient. Consideration of Admission/Observation Patient was admitted/placed on observation. Escalation of care including admission/observation considered. Management of patient was discussed with the following: Fire Control Technician G: Discussed case with Dr. Orr, wants aspirin and will cath tomorrow.. Counseling: I had a detailed discussion with the patient and/or guardian regarding the historical points, exam findings, and any diagnostic results supporting the discharge/admit diagnosis, lab results, radiology results, the need for further work-up and treatment in the hospital. 05/28 16:26 Order name: Basic Metabolic Panel; Complete Time: 17:11 rn 05/28 16:26 Order name: CBC with Diff; Complete Time: 17:11 rn 05/28 16:26 Order name: NT PRO-BNP; Complete Time: 17:11 rn 05/28 16:26 Order name: PT-INR; Complete Time: 17:11 rn 05/28 16:26 Order name: Troponin HS; Complete Time: 17:11 rn 05/28 18:20 Order name: Urinalysis w/ reflexes [facility] 05/28 18:20 Order name: CBC with Automated Diff [facility] 05/28 18:20 Order name: CBC with Automated Diff [facility] 05/28 18:20 Order name: Comprehensive Metabolic Panel [facility] 05/28 18:20 Order name: Comprehensive Metabolic Panel [facility] 05/28 18:20 Order name: Lipid Profile [facility] 05/28 18:20 Order name: Lipid Profile [facility] 05/28 18:20 Order name: Troponin High Sensitivity [facility] 05/28 18:20 Order name: Troponin High Sensitivity [facility] 05/28 18:20 Order name: Troponin High Sensitivity [facility] 05/28 18:20 Order name: Troponin High Sensitivity [facility] 05/28 16:26 Order name: XRAY Chest (1 view); Complete Time: 17:50 rn 05/28 16:26 Order name: EKG; Complete Time: 16:27 rn 05/28 16:26 Order name: Cardiac monitoring; Complete Time: 16:27 rn 05/28 16:26 Order name: EKG - Nurse/Tech; Complete Time: 16:27 rn 05/28 16:26 Order name: IV Saline Lock; Complete Time: 16:27 rn 05/28 16:26 Order name: Labs collected and sent; Complete Time: 16:27 rn 05/28 16:26 Order name: O2 Per Protocol; Complete Time: 16 rn 05/28 16:26 Order name: O2 Sat Monitoring; Complete Time: : rn EC:34 Rate is 77 beats/min. Rhythm is regular. QRS is positive in lead I and negative in lead rn aVF. QRS interval is normal. QT interval is normal. No Q waves. T waves are Normal. No ST changes noted. Clinical impression: NSR w/ Non-specific ST/T Changes. Interpreted by me. Reviewed by me. Administered Medications: 18: Drug: Aspirin PO 325 mg PO once Route: PO; ph 18:29 Follow up: Response: No adverse reaction ph Disposition Summary: 05/28/24 18:23 Hospitalization Ordered Notes: Hospitalization Status: Observation rn Provider: Pyeman Schmitz rn Location: Telemetry/MedSurg (observation) rn Condition: Stable rn Problem: new rn Symptoms: have improved rn Bed/Room Type: Standard rn Room Assignment: 407(05/28/24 18:41) sp Diagnosis - Chest pain, unspecified rn Forms: - Medication Reconciliation Form rn - SBAR form rn - Leadership Thank You Letter rn Signatures: Dispatcher [employer] EDOlivia Sanchez Roman, MD MD rn Hall, Patricia, RN RN Ilene Donnelly RN RN jl7 Corrections: (The following items were deleted from the chart) 18:41 18:23 rn sp
--- NOTE | 2024-05-28 18:24 | ER ---
Nurse's Notes [facility] Name: John Suarez Age: 53 yrs Sex: Male : 1970 Arrival Date: 05/28/2024 Time: 16:05 Bed 4 Private MD: Diagnosis: Chest pain, unspecified Presentation: 05/28 16:21 Chief complaint: Patient states: CP on Saturday, discharged with negative trops. Followed [facility] up with Dr. Orr today who sent him here for admit. Reports intermittent chest tightness since Saturday. Coronavirus screen: At this time, the client does not indicate any symptoms associated with coronavirus-19. Ebola Screen: No symptoms or risks identified at this time. Initial Sepsis Screen: Does the patient meet any 2 criteria? No. Patient's initial sepsis screen is negative. Does the patient have a suspected source of infection? No. Patient's initial sepsis screen is negative. Risk Assessment: Do you want to hurt yourself or someone else? Patient reports no desire to harm self or others. Onset of symptoms is unknown. 16:21 Method Of Arrival: Ambulatory [facility] 16:21 Acuity: JUAN 2 7 Triage Assessment: 16:24 General: Appears in no apparent distress. uncomfortable, Behavior is cooperative, jl7 appropriate for age, anxious. Pain: Denies pain. Neuro: Level of Consciousness is awake, alert, obeys commands, Oriented to person, place, time, situation. Cardiovascular: Reports chest tightness Patient's skin is warm and dry. Historical: - Allergies: 16:24 Cephalexin Monohydrate; jl7 16:24 Hydrocodone-Acetaminophen; jl7 - Home Meds: 16:24 allopurinol 300 mg oral tablet [Active]; Fluoxetine 80 mg Oral [Active]; alprazolam 0.5 jl7 mg Oral tablet [Active]; - PMHx: 16:24 Depression; Gout; Hypertension; insomnia; jl7 - Immunization history:: Adult Immunizations unknown. - Infectious Disease History:: Denies. - Social history:: Smoking status: Patient denies any tobacco usage or history of. - Family history:: not pertinent. - Hospitalizations: : No recent hospitalization is reported. Screenin:23 [facility] ED Fall Risk Assessment (Adult) History of falling in the last 3 months, ph including since admission No falls in past 3 months (0 pts) Confusion or Disorientation No (0 pts) Intoxicated or Sedated No (0 pts) Impaired Gait No (0 pts) Mobility Assist Device Used No (0 pt) Altered Elimination Yes (1 pt) Score/Fall Risk Level 0 - 2 = Low Risk Oriented to surroundings, Maintained a safe environment, Hourly rounding (assess needs \T\ fall precautionary measures) done. Abuse screen: Denies threats or abuse. Denies injuries from another. Nutritional screening: No deficits noted. Tuberculosis screening: No symptoms or risk factors identified. Assessment: 17:22 General: Appears in no apparent distress. comfortable, well groomed, Behavior is calm, ph cooperative, appropriate for age. Pain: Denies pain. Neuro: Level of Consciousness is awake, alert, obeys commands, Oriented to person, place, time, situation. Cardiovascular: Denies chest pain. Respiratory: Airway is patent Respiratory effort is even, unlabored, Respiratory pattern is regular, symmetrical. Derm: Skin is pink, warm \T\ dry. 19:04 General: Appears in no apparent distress. comfortable, Behavior is calm, cooperative. al5 Pain: Denies pain. Neuro: Level of Consciousness is awake, alert, obeys commands, Oriented to person, place, time, situation. Cardiovascular: Capillary refill < 3 seconds Patient's skin is warm and dry. Respiratory: Airway is patent Respiratory effort is even, unlabored, Respiratory pattern is regular, symmetrical. GI: No signs and/or symptoms were reported involving the gastrointestinal system. : No signs and/or symptoms were reported regarding the genitourinary system. EENT: No signs and/or symptoms were reported regarding the EENT system. Derm: Skin is intact, is healthy with good turgor, Skin is pink, warm \T\ dry. normal. Musculoskeletal: No signs and/or symptoms reported regarding the musculoskeletal system. Vital Signs: 16:21 BP 153 / 99; Pulse 79; Resp 17; Temp 98.7; Pulse Ox 98% ; Weight 100.7 kg; Height 5 ft. jl7 10 in. ; Pain 8/10; 17:23 BP 133 / 85; Pulse 74; Resp 18; Pulse Ox 95% on R/A; ph 18:01 BP 131 / 81; Pulse 70; Resp 16; Pulse Ox 97% on R/A; jb4 18:30 BP 131 / 81; Pulse 81; Resp 18; Pulse Ox 98% on R/A; ph 19:00 BP 123 / 93; Pulse 64; Resp 18; Pulse Ox 96% on R/A; al5 16:21 Body Mass Index 31.85 (100.70 kg, 177.8 cm) jl7 16:21 Pain Scale: Adult jl7 Vitals: 17:23 Cardiac Rhythm Assessment Sinus rhythm. ph ED Course: 16:06 Patient arrived in ED. mr 16:09 Garth Warren MD is Attending Physician. rn 16:12 EKG done, by ED staff, reviewed by Garth Warren MD. jl7 16:24 Triage completed. jl7 16:24 Inserted saline lock: 20 gauge in right antecubital area, using aseptic technique. ap3 Blood collected. Flushed with 10 mL NS. 16:24 Arm band placed on right wrist. jl7 16:26 EKG done, by ED staff, reviewed by Garth Warren MD. ap3 16:29 Ailin Munoz RN is Primary Nurse. ph 17:17 XRAY Chest (1 view) In Process Unspecified. EDMS 17:23 No provider procedures requiring assistance completed. Patient admitted, IV remains in ph place. 17:23 Patient has correct armband on for positive identification. Placed in gown. Bed in low ph position. Call light in reach. Side rails up X 1. Client placed on continuous cardiac and pulse oximetry monitoring. NIBP monitoring applied. gambling monitor on. 18:20 Peyman Schmitz MD is Hospitalizing Provider. rn 19:04 Provided Education on: need for admission. al5 Administered Medications: 18:29 Drug: Aspirin PO 325 mg PO once Route: PO; ph 18:29 Follow up: Response: No adverse reaction ph Medication: 17:23 VIS not applicable for this client. ph Outcome: 18:23 Decision to Hospitalize by Provider. rn 19:35 Admitted to Med/surg accompanied by tech, via wheelchair, room 407, al5 19:35 Condition: stable 19:35 Instructed on the need for admit, 19:36 Patient left the ED. al5 Signatures: Dispatcher [employer] EDVA Peri Caicedo, Reg Reg mr Garth Warren MD MD rn Hall, Patricia, RN RN Hussain Jeter RN RN jb4 Ilene Donnelly RN RN jl7 Deja Akins, RN RN ap3 Deja Shafer, RN RN al5
[2024-05-28] MEDS ORDERED: ASPIRIN 81 MG CHEWABLE TABLET ONE (18:27)
[2024-05-28 19:57] VITALS: BMI 31.8
[2024-05-28] MEDS: FLUOXETINE 20 MG CAP PO SCH (20:11)
[2024-05-28] MEDS: allopurinoL 300 MG TAB PO SCH (20:11)
[2024-05-28] MEDS: ATORVASTATIN 40 MG TAB PO SCH (20:11)
[2024-05-28] MEDS: ZOLPIDEM TARTRATE 10 MG TABLET PO SCH (20:11)
[2024-05-29 06:22] LABS: Absolute Eosinophils 0.2 K/uL (0-0.5); Absolute Lymphocytes (CBC) 1.9 K/uL (0.7-4.9); Absolute Monocytes 0.4 K/uL (0.1-1.3); Absolute Neutrophil 3.1 K/uL (1.8-8.0); Basophils % 0.5 % (0-1.3); Eosinophils % 2.8 % (0-4.4); Hematocrit 49.6 % (39.6-49.0); Hemoglobin 16.6 g/dL (13.6-17.9); Lymphocytes % 34.1 % (15.3-44.8); MCH 30.3 pg (27.0-35.0); MCHC 33.5 g/dL (32.0-36.0); MCV 90.3 fL (80-100); MPV 8.1 fL (7.6-11.3); Monocytes % 7.9 % (3.3-12.3); Neutrophils % 54.7 % (41.7-73.7); Platelets 149 thou/uL (152-406); RBC Red Blood Cell Count 5.49 M/uL (4.33-5.43); Red Cell Distribution Width 14.1 % (12.1-15.2)
[2024-05-29 06:30] LABS: Albumin 3.2 g/dL (3.4-5.0); Albumin/Globulin Ratio 0.9 (1.1-1.8); Anion Gap 8.7 mEq/L (5.0-15.0); Bilirubin Total 0.6 mg/dL (0.2-1.0); Globulin 3.4 g/dL (2.3-3.5); Potassium 3.7 mEq/L (3.5-5.1); Protein, Total 6.6 g/dL (6.4-8.2)
[2024-05-29] MEDS ORDERED: NA CHLORIDE 0.9% 500 ML ONE (07:33)
[2024-05-29] MEDS: POTASSIUM CL SA 10 MEQ TAB PO ONE (07:47)
[2024-05-29] MEDS: ASPIRIN EC 81 MG TAB PO SCH (07:47)
[2024-05-29] MEDS ORDERED: HEPARIN 10,000 UNIT/10 ML VIAL IV ONE (08:28)
[2024-05-29] MEDS ORDERED: VERAPAMIL HCL 10 MG/4 ML VIAL IV ONE (08:28)
[2024-05-29] MEDS ORDERED: LIDOCAINE 1% 20 ML MDV ONE (08:28)
[2024-05-29] MEDS ORDERED: HEPA 1000U/500MLS 2,000 UNIT/1,000 ML BAG IV ONE (08:28)
[2024-05-29] MEDS ORDERED: MIDAZOLAM HCL 2 MG/2 ML INJ ONE (08:28)
[2024-05-29] MEDS ORDERED: ATROPINE SULF 1 MG/10 ML SYR IV ONE (08:28)
[2024-05-29] MEDS ORDERED: CLOPIDOGREL 75 MG TABLET ONE (08:28)
[2024-05-29] MEDS ORDERED: ASPIRIN 325 MG TAB ONE (08:29)
[2024-05-29] MEDS ORDERED: TICAGRELOR 90 MG TABLET PO ONE (08:29)
[2024-05-29] MEDS ORDERED: HEPARIN 5000 UNIT/ML 1 ML VIAL ONE (08:29)
[2024-05-29] MEDS ORDERED: FENTANYL CITR 100 MCG/2 ML ONE (08:29)
--- NOTE | 2024-05-29 09:42 | OP ---
Date of Procedure: 05/29/2024 Surgeon: NBA KENNEDY Procedures Performed: 1.Selective coronary angiogram. 2.Left heart catheterization. Indication: Unstable angina. Access: Right radial artery 6-Cuban, closed with TR band. Complications: None. Bleeding: Less than 50 mL. Anesthesia: Total sedation time is 45 minutes, used fentanyl and Versed. Description Of Procedure: After risks, benefits, and alternatives were explained, the patient agreed to procedure and signed informed consent. The patient was brought into cardiac catheterization [facility], prepped and draped in usual sterile fashion. Then, I accessed right radial artery using pedi atric micropuncture kit, placed 6-Cuban Slender sheath and took 5-Cuban [place] 4 catheter over J-wir e into the aortic root across the aortic valve, measured the LVEDP. Pullback did not record any grad ient. Then, engaged left main, took standard views, and then engaged the RCA, took standard views an d removed the catheter and the sheath, placed TR band with good hemostasis. Findings: 1.Left main, large and normal. 2.LAD; large and normal. Normal diagonal branches. 3.Left circumflex is normal and there is a ramus, also that is normal. 4.Ramus intermedius is normal. 5.RCA is dominant and normal. 6.LVEDP elevated at 15 mmHg. Conclusions: 1.Normal coronary arteries. 2.Slightly elevated LVEDP. Recommendation: Medical management. SR/MODL Voice ID: [id number] Report ID: [id number]
--- NOTE | 2024-05-29 09:51 | CON ---
Date of Consultation: 05/29/2024 Reason For Consultation: Chest pain. History Of Present Illness: A 53-year-old male, history of hypertension, dyslipidemia. He was evalu ated in the office yesterday, was complaining of chest pain, pressure like, radiates to his neck, jaw , and left shoulder with minimal activities and then it became even at rest. Symptoms were very conc erning and had abnormal EKG. The patient was directly admitted. His troponin was negative and he wa s brought in for coronary angiogram due to the typical nature of his symptoms suggestive of unstable angina. Past Medical History: Hypertension, dyslipidemia. Medications: Refer reconciliation sheet for detailed list. Allergies: KEFLEX AND HYDROCODONE. Family History: No premature coronary artery disease or cancer. Social History: He does not smoke. Does not use any drugs. Review of Systems: All systems reviewed and they are negative except as mentioned in HPI. Physical Examination: Vital Signs: Reviewed. Head and Neck: Pupils are equal, reactive to light. Intact eye movements. No JVD. No cervical lym phadenopathy. Neck supple. Thyroid is not enlarged. Lungs: Clear to auscultation bilaterally. No rhonchi, wheezing, or crackles. No accessory muscle u se. Heart: Regular rate and rhythm. No extra sounds. Abdomen: Soft, nontender. Bowel sounds positive. No organomegaly. No masses or hernia. No rigidi ty or rebound. Extremities: No edema, clubbing, or cyanosis. Intact pulses. Skin: No rash. No nodules. Neuro: Alert, awake, oriented x3. No acute focal deficits appreciated. Investigations: Labs reviewed. Assessment And Recommendations: 1.Unstable angina, very typical symptoms with normal EKG. Keep n.p.o. Plan for coronary angiogram. 2.Hypertension. Blood pressure is controlled. Continue current therapy. 3.Dyslipidemia. Recommend Lipitor 40 mg q.h.s. SR/MODL Voice ID: [id number] Report ID: [id number]
--- NOTE | 2024-05-29 13:16 | P.DS ---
Admission Date: 05/28/24 Discharge Date: 05/29/24 Disposition: ROUTINE DISCHARGE Discharge Condition: GOOD Reason for Admission: CP Consultations: Dr. Orr Brief History of Present Illness: 53 yrs old Male with past medical history of hypertension, insomnia, gout, depression was seen by certified lactation educator in the office and was sent over here for possible angiogram tomorrow . He had retrosternal chest pain for the last 4 days which has been progressively worsening radiate to back and shoulders. Associated with mild shortness of breath. Pain is intermittent pressure-like, no modifying factor. Patient was seen by Dr. Orr today, as the patient continues to have chest pain he was sent to ER for admission and possible heart cath tomorrow. Denies any fever or chills. Denies any nausea vomiting or diarrhea. Patient was assessed in the ER and is admitted for further management Hospital Course: Hospital course: Mr. Smith underwent left heart cath this am and was determined to have normal coronaries. He will be discharged home with Lipitor 40mg po at bedtime nightly. Assessment: Chest pain with normal troponin and normal coronaries PMH: Depression/anxiety New prescriptions: Lipitor 40mg po q HS #90 Vital Signs/Physical Exam: Temp Pulse Resp BP Pulse Ox 97.7 F 62 20 133/83 96 05/29/24 12:00 05/29/24 12:00 05/29/24 12:00 05/29/24 12:00 05/29/24 12:00 General: Alert, In no apparent distress, Oriented x3 HEENT: Atraumatic, Normocephalic Neck: Supple Respiratory: Clear to auscultation bilaterally, Normal air movement Cardiovascular: No edema, Normal pulses, Regular rate/rhythm Capillary refill: <2 Seconds Gastrointestinal: Normal bowel sounds, Soft and benign Musculoskeletal: No clubbing, No swelling Integumentary: No rashes Neurological: Normal speech, Normal tone, Normal affect Lymphatics: No axilla or inguinal lymphadenopathy External genitalia: Deferred Rectal: Deferred Laboratory Data at Discharge: WBC 5.70 thou/uL (4.3-10.9) 05/29/24 05:36 Hgb 16.6 g/dL (13.6-17.9) 05/29/24 05:36 Hct 49.6 % (39.6-49.0) H 05/29/24 05:36 Plt Count 149 thou/uL (152-406) L 05/29/24 05:36 PT 11.4 SECONDS (9.4-12.5) 05/28/24 16:35 INR 1.02 05/28/24 16:35 Sodium 141 mEq/L (136-145) 05/29/24 05:36 Potassium 3.7 mEq/L (3.5-5.1) 05/29/24 05:36 BUN 14 mg/dL (7-18) 05/29/24 05:36 Creatinine 1.20 mg/dL (0.70-1.30) 05/29/24 05:36 Glucose 132 mg/dL (74-106) H 05/29/24 05:36 Total Bilirubin 0.6 mg/dL (0.2-1.0) 05/29/24 05:36 AST 17 U/L (15-37) 05/29/24 05:36 ALT 28 U/L (16-61) 05/29/24 05:36 Alkaline Phosphatase 79 U/L (45-117) 05/29/24 05:36 Triglycerides 172 mg/dL (<150) H 05/29/24 05:36 Cholesterol 130 mg/dL (<200) 05/29/24 05:36 HDL Cholesterol 34 mg/dL (40-60) L 05/29/24 05:36 Cholesterol/HDL Ratio 3.82 05/29/24 05:36 Home Medications: Allopurinol 1 tab PO BEDTIME 09/07/18 Zolpidem Tartrate 1 tab PO BEDTIME 09/07/18 Fluoxetine HCl [Prozac] 80 mg PO BEDTIME 07/03/23 ALPRAZolam [Xanax*] 1 tab PO DAILY 05/29/24 Atorvastatin Calcium [Lipitor] 40 mg PO BEDTIME #90 tab 05/29/24 New Medications: Atorvastatin Calcium [Lipitor] 40 mg PO BEDTIME #90 tab Physician Discharge Instructions: Hospital course: Mr. Smith underwent left heart cath this am and was determined to have normal coronaries. He will be discharged home with Lipitor 40mg po at bedtime nightly. Assessment: Chest pain with normal troponin and normal coronaries PMH: Depression/anxiety New prescriptions: Lipitor 40mg po q HS #90 Continue home medicines as previously prescribed GOAL: Clear understanding of disease process Diet: AHA, low sodium Activity: Ad [place] INSTRUCTIONS: Physician Discharge Instructions: Okay to DC IV and DC home Follow-up with primary care provider in 1 to 2 weeks Follow-up with cardiology in 2 weeks Please call the inpatient unit for any questions or concerns regarding hospital stay Return to the ER for worsening symptoms Diet: Regular Followup: Ge Holliday MD [Primary Care Provider] - Mark Orr MD [ACTIVE - CAN ADMIT] -
[2024-05-29 16:07] VITALS: O2SAT 97
[2024-05-29 16:15] VITALS: BP 140/87; TEMP 97.6
== END 2024-05-29 16:45 | disposition home or self-care (01) ==
LOC: ER 16:05 → ERHOLD 18:16 → 4TH 18:51
PROVIDERS: ADMIT Family Medicine; ATTEND Internal Medicine
PROC: 4A023N7 Measurement of Cardiac Sampling and Pressure, Left Heart, Percutaneous Approach (ICD-10-PCS; principal; 2024-05-28)
PROC: B2111ZZ Fluoroscopy of Multiple Coronary Arteries using Low Osmolar Contrast (ICD-10-PCS; 2024-05-28)
PROC: B2151ZZ Fluoroscopy of Left Heart using Low Osmolar Contrast (ICD-10-PCS; 2024-05-28)
DX: I20.0 Unstable angina (principal); I10 Essential (primary) hypertension; E78.5 Hyperlipidemia, unspecified; M10.9 Gout, unspecified; F32.A Depression, unspecified; F41.9 Anxiety disorder, unspecified; G47.00 Insomnia, unspecified; Z88.1 Allergy status to other antibiotic agents; Z88.5 Allergy status to narcotic agent; Z82.49 Family history of ischemic heart disease and other diseases of the circulatory system; Z80.0 Family history of malignant neoplasm of digestive organs; Z83.3 Family history of diabetes mellitus
CPT/HCPCS: 85025 ×2; 80048; 36415; 85610; 80061; 84484 ×3; 80053; 83880; 71045; 93458; 76937; 94760; 99285; C1893; Q9967; J1644; J2003; J2250; J3010; G0378 ×4; J7040; 99152; J0461

== ENCOUNTER 2025-04-09 11:34 | Emergency (ER) | payer OTHER ==
--- OUTSIDE RECORDS SUMMARY | 2025-04-09 11:37 | XMS REPORT | Continuity of Care Document ---
Author Name Unknown Address [address] [facility] [address] [place] [address] Organization [facility] [place] Address [address] [address] [place] [address] Care Team Providers Care Yard Supervisor Cotton Gin Name Role Phone Unavailable Unavailable Unavailable Problems Condition Name Condition Details Condition Category Status Onset Date Resolution Date Last Treatment Date Treating Clinician Comments Source Moderate recurrent major depression Moderate Recurrent Major Depression Problem Active - 00:00: 00 [facility] Generalize d anxiety disorder Generalize d Anxiety Disorder Problem Active 10-05 00:00: 00 [facility] Primary insomnia Primary Insomnia Problem Active 10-05 00:00: 00 [facility] Medications Ordered Medication Name Filled Medication Name Start Date Stop Date Current Medication? Ordering Clinician Indication Dosage Frequency Signature (SIG) Comments Components Source Prozac 40 mg capsule Take 2 capsules every day by oral route for 90 days. Prozac 40 mg capsule Take 2 capsules every day by oral route for 90 days. No 2capsul e(s) Q1D Prozac 40 mg capsule Take 2 capsules every day by oral route for 90 days. [facility] Xanax 0.5 mg tablet Take 1 tablet twice a day by oral route as needed for 30 days. Xanax 0.5 mg tablet Take 1 tablet twice a day by oral route as needed for 30 days. No 1 BID Xanax 0.5 mg tablet Take 1 tablet twice a day by oral route as needed for 30 days. [facility] zolpidem 10 mg tablet Take 1 tablet every day by oral route at bedtime for 30 days. zolpidem 10 mg tablet Take 1 tablet every day by oral route at bedtime for 30 days. No 1 Q1D zolpidem 10 mg tablet Take 1 tablet every day by oral route at bedtime for 30 days. [facility] Vital Signs Vital Name Observation Time Observation Value Comments S ource Body Weight 2025-01-11 00:00:00 228 [lb_av] [facility] BMI (Body Mass Index) 2025-01-11 00:00:00 32.7 kg/m2 [facility] Height 2025-01-11 00:00:00 70 [in_i] [facility] Body Weight 2024-10-06 00:00:00 225 [lb_av] [facility] BMI (Body Mass Index) 2024-10-06 00:00:00 32.3 kg/m2 [facility] Height 2024-10-06 00:00:00 70 [in_i] [facility] Encounters Start Date/Time End Date/Time Encounter Type Admission Type Attending [facility] Care Facility Care Department Encounter ID Source 2025-04-05 00:00:00 2025-04-05 00:00:00 Bigg Chance MD: [address] [id number] , 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 [facility] [id number] [facility] 2025-01-11 00:00:00 2025-01-11 00:00:00 Bigg Chance MD: [address] [id number] , Ph. [facility] [id number] [facility] 2024-10-06 00:00:00 2024-10-06 00:00:00 Bigg Chance MD: [address] [address] , Ph. [facility] [id number] [facility]
[2025-04-09] MEDS ORDERED: ONDANSETRON 4 MG/2 ML VIAL ONE (11:55)
[2025-04-09] MEDS ORDERED: MECLIZINE HCL 12.5 MG TAB ONE (11:56)
[2025-04-09] MEDS ORDERED: NA CHLORIDE 0.9% 1,000 ML ONE (11:56)
[2025-04-09 12:24] LABS: Absolute Lymphocytes (CBC) 1.5 K/uL (0.7-4.9); Hematocrit 49.7 % (39.6-49.0); Hemoglobin 16.4 g/dL (13.6-17.9); MCH 28.4 pg (27.0-35.0); MCHC 33.0 g/dL (32.0-36.0); MCV 86.2 fL (80-100); MPV 7.8 fL (7.6-11.3); Nucleated RBC Absolute Count 0.0 (0-0); Nucleated Red Blood Cells % 0.4 % (0-0); RBC Red Blood Cell Count 5.76 M/uL (4.33-5.43); White Blood Count 4.00 thou/uL (4.3-10.9)
[2025-04-09 12:26] LABS: PT Prothrombin Time 12.3 SECONDS (10-13.0); Protime INR 1.09
--- NOTE | 2025-04-09 12:26 | RAD REPORT ---
Procedure: Chest Single View HISTORY: Shortness of breath COMPARISON: August 2024 FINDINGS: The lungs appear clear of acute infiltrate. No significant pleural effusion noted. The heart is normal size. IMPRESSION: No acute abnormality is displayed.
[2025-04-09 13:14] LABS: Anion Gap 9.1 mEq/L (5.0-15.0); Potassium 4.1 mEq/L (3.5-5.1)
[2025-04-09 13:15] LABS: ALT/SGPT 38.0 U/L (16-61); AST/SGOT 26.0 U/L (15-37); Albumin 3.9 g/dL (3.4-5.0); Albumin/Globulin Ratio 1.2 (1.1-1.8); Alkaline Phosphatase 60.0 U/L (45-117); BUN Blood Urea Nitrogen 22.0 mg/dL (7-18); Bilirubin Indirect, Calculated 0.5 mg/dL (0.2-0.8); Globulin 3.2 g/dL (2.3-3.5); Glucose Level 100.0 mg/dL (74-106); NT PRO-BNP 19.0 pg/mL (<125); Troponin High Sensitivity 4.1 (<58.9)
[2025-04-09 13:16] LABS: Lipase 55.0 U/L (13-75); Magnesium 1.9
[2025-04-09 13:51] LABS: Urine Microscopic Reflex YN NO UMIC
--- NOTE | 2025-04-09 16:11 | EDPHYS ---
Physician Documentation [facility] Name: John Suarez Age: 54 yrs Sex: Male : 1970 Arrival Date: 04/09/2025 Time: 11:34 Bed 5 Private MD: ED Physician Kemar Brower HPI: 04/09 16:03 This 54 yrs old Male presents to ER via Ambulatory with complaints of ned Dizziness, Shortness Of Breath, Nausea. 16:03 The patient presents with dizziness, generalized weakness. Onset: The symptoms/episode ned began/occurred 1 day(s) ago. Context: occurred at home. Modifying factors: The symptoms are alleviated by holding head still, the symptoms are aggravated by movement of head. Associated signs and symptoms: Pertinent positives: nausea. Severity of symptoms: At their worst the symptoms were mild in the emergency department the symptoms are unchanged. Patient's baseline: Neuro: alert and fully oriented. The patient has not experienced similar symptoms in the past. Historical: - Allergies: 12:10 Cephalexin Monohydrate; kb3 12:10 Hydrocodone-Acetaminophen; kb3 - Home Meds: 12:10 alprazolam 0.5 mg Oral tablet 1 tab daily [Active]; losartan oral 1 tab daily [Active]; kb3 meclizine 25 mg Oral tablet 1 tab daily [Active]; - PMHx: 12:10 Depression; Gout; Hypertension; insomnia; kb3 - PSHx: 12:10 None; kb3 - Immunization history:: Adult Immunizations up to date. - Infectious Disease History:: Denies. - Social history:: Smoking status: Patient denies any tobacco usage or history of. - Family history:: not pertinent. ROS: 16:03 Constitutional: Negative for fever, chills, and weight loss, Eyes: Negative for injury, ned pain, redness, and discharge, ENT: Negative for injury, pain, and discharge, Neck: Negative for injury, pain, and swelling, Cardiovascular: Negative for chest pain, palpitations, and edema, Respiratory: Negative for shortness of breath, cough, wheezing, and pleuritic chest pain, Abdomen/GI: Negative for abdominal pain, nausea, vomiting, diarrhea, and constipation, Back: Negative for injury and pain, : Negative for injury, bleeding, discharge, and swelling, MS/Extremity: Negative for injury and deformity, Skin: Negative for injury, rash, and discoloration, Psych: Negative for depression, anxiety, suicide ideation, homicidal ideation, and hallucinations, Allergy/Immunology: Negative for hives, rash, and allergies, Endocrine: Negative for neck swelling, polydipsia, polyuria, polyphagia, and marked weight changes, Hematologic/Lymphatic: Negative for swollen nodes, abnormal bleeding, and unusual bruising, 16:03 Neuro: Positive for dizziness, Exam: 16:03 Constitutional: This is a well developed, well nourished patient who is awake, alert, ned and in no acute distress. Head/Face: Normocephalic, atraumatic. Eyes: Pupils equal round and reactive to light, extra-ocular motions intact. Lids and lashes normal. Conjunctiva and sclera are non-icteric and not injected. Cornea within normal limits. Periorbital areas with no swelling, redness, or edema. ENT: Nares patent. No nasal discharge, no septal abnormalities noted. Tympanic membranes are normal and external auditory canals are clear. Oropharynx with no redness, swelling, or masses, exudates, or evidence of obstruction, uvula midline. Mucous membranes moist. Neck: Trachea midline, no thyromegaly or masses palpated, and no cervical lymphadenopathy. Supple, full range of motion without nuchal rigidity, or vertebral point tenderness. No Meningismus. Chest/axilla: Normal chest wall appearance and motion. Nontender with no deformity. No lesions are appreciated. Cardiovascular: Regular rate and rhythm with a normal S1 and S2. No gallops, murmurs, or rubs. Normal PMI, no JVD. No pulse deficits. Respiratory: Lungs have equal breath sounds bilaterally, clear to auscultation and percussion. No rales, rhonchi or wheezes noted. No increased work of breathing, no retractions or nasal flaring. Abdomen/GI: Soft, non-tender, with normal bowel sounds. No distension or tympany. No guarding or rebound. No evidence of tenderness throughout. Back: No spinal tenderness. No costovertebral tenderness. Full range of motion. Skin: Warm, dry with normal turgor. Normal color with no rashes, no lesions, and no evidence of cellulitis. MS/ Extremity: Pulses equal, no cyanosis. Neurovascular intact. Full, normal range of motion., bilateral aka Neuro: Awake and alert, GCS 15, oriented to person, place, time, and situation. Cranial nerves II-XII grossly intact. Motor strength 5/5 in all extremities. Sensory grossly intact. Cerebellar exam normal. Normal gait. Psych: Awake, alert, with orientation to person, place and time. Behavior, mood, and affect are within normal limits. 16:08 ECG was reviewed by the Attending Physician. [facility] Vital Signs: 11:35 BP 140 / 95; Pulse 70; Resp 25; Temp 97.8; Pulse Ox 94% on R/A; Weight 104.33 kg; kb3 Height 5 ft. 10 in. ; Pain 5/10; 12:00 BP 140 / 94; Pulse 63; Resp 20 S; Pulse Ox 91% on 3 lpm NC; me1 13:00 BP 128 / 94; Pulse 64; Resp 18; Pulse Ox 99% on 3 lpm NC; me1 14:00 BP 134 / 92; Pulse 65; Resp 16; Pulse Ox 97% on 3 lpm NC; me1 15:00 BP 133 / 90; Pulse 69; Resp 16; Pulse Ox 95% on 3 lpm NC; me1 16:00 BP 122 / 89; Pulse 72; Resp 21; Pulse Ox 95% on 3 lpm NC; me1 11:35 Body Mass Index 33.00 (104.33 kg, 177.8 cm) kb3 11:35 Pain Scale: Adult kb3 Tahir Coma Score: 16:03 Eye Response: spontaneous(4). Motor Response: obeys commands(6). Verbal Response: ned oriented(5). Total: 15. MDM: 11:41 Medical Screening Exam initiated ned 16:08 Differential diagnosis: cardiac arrhythmia, CVA, generalized weakness, GI bleed, ned hyperventilation, hypovolemia, idiopathic dizziness, near-syncope, sepsis, syncope, TIA, vertigo. Data reviewed: vital signs, nurses notes, lab test result(s), EKG, radiologic studies, MRI, plain films. Consideration of Admission/Observation Escalation of care including admission/observation considered. I considered the following discharge prescriptions or medication management in the emergency department Medications were administered in the Emergency Department. See MAR. Independent interpretation of the following test(s) in the Emergency Department EKG: See my EKG interpretation above. Test considered but Not performed: Ultrasound NO CAROTID USG. Historians other than the Patient: Family Member: FAMILY WELL INFORMED. Care significantly affected by the following chronic conditions: Hypertension, Obesity, GOUT , DEPRESSION. Counseling: I had a detailed discussion with the patient and/or guardian regarding the historical points, exam findings, and any diagnostic results supporting the discharge/admit diagnosis, lab results, radiology results, the need for outpatient follow up, for definitive care, an ENT specialist, a family practitioner. 04/09 12:02 Order name: Basic Metabolic Panel; Complete Time: 15:52 [facility] 04/09 12:02 Order name: CBC with Diff; Complete Time: 15:52 [facility] 04/09 12:02 Order name: LFT's; Complete Time: 15:52 [facility] 04/09 12:02 Order name: Magnesium; Complete Time: 15:52 [facility] 04/09 12:02 Order name: NT PRO-BNP; Complete Time: 15:52 [facility] 04/09 12:02 Order name: PT-INR; Complete Time: 15:52 [facility] 04/09 12:02 Order name: Troponin HS; Complete Time: 15:52 [facility] 04/09 12:02 Order name: Lipase; Complete Time: 15:52 [facility] 04/09 12:02 Order name: UA Rfx Jeremiah Cult if indicated; Complete Time: 15:52 [facility] 04/09 12:02 Order name: XRAY Chest (1 view); Complete Time: 15:52 [facility] 04/09 14:33 Order name: Brain Wo Cont; Complete Time: 16:15 EDMS 04/09 12:02 Order name: Cardiac monitoring; Complete Time: 12:04 [facility] 04/09 12:02 Order name: EKG - Nurse/Tech; Complete Time: 12:04 [facility] 04/09 12:02 Order name: IV Saline Lock; Complete Time: 12:04 [facility] 04/09 12:02 Order name: Labs collected and sent; Complete Time: 12:04 [facility] 04/09 12:02 Order name: O2 Per Protocol; Complete Time: 12:04 [facility] 04/09 12:02 Order name: O2 Sat Monitoring; Complete Time: 12:04 [facility] EC:08 Rate is 62 beats/min. Rhythm is regular. QRS [place] is Normal. CT interval is normal. QRS ned interval is normal. QT interval is normal. No Q waves. T waves are Normal. No ST changes noted. Clinical impression: NSR w/ Non-specific ST/T Changes and No evidence of ischemia. Interpreted by me. Reviewed by me. Administered Medications: 12:04 Drug: Decadron - Dexamethasone IVP 10 mg IVP once Route: IVP; Site: right antecubital; kb3 14:48 Follow up: Response: No adverse reaction me1 12:04 Drug: Meclizine PO 50 mg PO once Route: PO; kb3 14:48 Follow up: Response: No adverse reaction; Marked relief of symptoms me1 12:04 Drug: Ondansetron IVP 8 mg IVP once; over 2 minutes Route: IVP; Site: right antecubital;kb3 14:48 Follow up: Response: No adverse reaction; Nausea is decreased me1 12:04 Drug: NS 0.9% IV 1000 ml IV at 1000 ml once; to be given as a bolus over 60 minutes kb3 Route: IV; Rate: 1000 ml; Site: right antecubital; 14:48 Follow up: Response: No adverse reaction; IV Status: Completed infusion; IV Intake: me1 1000ml Disposition Summary: 04/09/25 16:11 Discharge Ordered Notes: Location: Home ned Problem: new ned Symptoms: have improved ned Condition: Stable ned Diagnosis - Dizziness and giddiness ned - Benign paroxysmal vertigo, unspecified ear ned - Nausea ned Followup: ned - With: Private Physician - When: 2 - 3 days - Reason: Recheck today's complaints, Continuance of care, Re-evaluation by your physician Followup: ned - With: Olive Villarreal MD - When: 2 - 3 days - Reason: Recheck today's complaints, Re-evaluation by your physician Discharge Instructions: - Discharge Summary Sheet ned - Benign Positional Vertigo ned - Dizziness ned - Nausea and Vomiting, Adult ned - Nausea, Adult ned - Vertigo, [id number] ned - Aspirin and Your Heart ned - Dizziness, [id number] ned Forms: - Medication Reconciliation Form ned - Antibiotic Education ned - Prescription Opioid Use ned - Patient Portal Instructions [facility] - Leadership Thank You Letter [facility] Prescriptions: - ondansetron 4 mg Oral Tablet,disintegrating - take 1 tablet ORAL route every 6 hours as needed for nausea and vomiting; 20 ned tablet; Refills: 0, Product Selection Permitted - Meclizine 25 mg Oral Tablet - take 1 tablet ORAL route every 8 hours As needed; 30 tablet; Refills: 0, ned Product Selection Permitted Signatures: Dispatcher [employer] EDKemar Pollard MD MD cha Bradberry, Kelly RN RN kb3 Naheed Cochran RN me1 Corrections: (The following items were deleted from the chart) 12:02 12:02 MR STROKE PROTOCOL+MRI.RAD.BRZ ordered. EDMS EDMS 12: 12:10 Home Meds: allopurinol 300 mg Oral tablet; kb3 kb3 12:12 12:10 Home Meds: Fluoxetine 80 mg Oral; kb3 kb3
--- NOTE | 2025-04-09 16:11 | ER ---
Nurse's Notes [facility] Name: John Suarez Age: 54 yrs Sex: Male : 1970 Arrival Date: 04/09/2025 Time: 11:34 Bed 5 Private MD: Diagnosis: Dizziness and giddiness;Benign paroxysmal vertigo, unspecified ear;Nausea Presentation: 04/09 11:35 Chief complaint: Patient states: Dizziness unrelieved by meclizine, nausea and SOB kb3 since 6am. Coronavirus screen: Vaccine status: Patient reports being unvaccinated. Client denies travel out of the [place] in the last 14 days. Ebola Screen: Patient negative for fever greater than or equal to 101.5 degrees Fahrenheit, and additional compatible Ebola Virus Disease symptoms Patient denies exposure to infectious person. Patient denies travel to an Ebola-affected area in the 21 days before illness onset. 11:35 Method Of Arrival: Ambulatory kb3 11:35 Initial Sepsis Screen: Does the patient meet any 2 criteria? No. Patient's initial kb3 sepsis screen is negative. Does the patient have a suspected source of infection? No. Patient's initial sepsis screen is negative. Risk Assessment: Do you want to hurt yourself or someone else? Patient reports no desire to harm self or others. Onset of symptoms was April 09, 2025 at 06:00. 11:35 Acuity: JUAN 2 kb3 Triage Assessment: 12:10 General: Appears in no apparent distress. uncomfortable, Behavior is calm, cooperative. kb3 Pain: Complains of pain in head Pain does not radiate. Pain currently is 5 out of 10 on a pain scale. Quality of pain is described as dull, throbbing. Respiratory: Reports shortness of breath at rest Airway is patent Trachea midline Respiratory effort is even, unlabored, Respiratory pattern is regular, Breath sounds are clear Breath sounds are diminished bilaterally. Onset: The symptoms/episode began/occurred this morning, the patient has mild shortness of breath. GI: Reports nausea. Historical: - Allergies: 12:10 Cephalexin Monohydrate; kb3 12:10 Hydrocodone-Acetaminophen; kb3 - Home Meds: 12:10 alprazolam 0.5 mg Oral tablet 1 tab daily [Active]; losartan oral 1 tab daily [Active]; kb3 meclizine 25 mg Oral tablet 1 tab daily [Active]; - PMHx: 12:10 Depression; Gout; Hypertension; insomnia; kb3 - PSHx: 12:10 None; kb3 - Immunization history:: Adult Immunizations up to date. - Infectious Disease History:: Denies. - Social history:: Smoking status: Patient denies any tobacco usage or history of. - Family history:: not pertinent. Screenin:[address] [facility] ED Fall Risk Assessment (Adult) History of falling in the last 3 months, kb3 including since admission No falls in past 3 months (0 pts) Confusion or Disorientation No (0 pts) Intoxicated or Sedated No (0 pts) Impaired Gait No (0 pts) Mobility Assist Device Used No (0 pt) Altered Elimination No (0 pt) Score/Fall Risk Level 0 - 2 = Low Risk Oriented to surroundings, Maintained a safe environment, Educated pt \T\ family on fall prevention, incl call for assistance when getting out of bed. Abuse screen: Denies threats or abuse. Denies injuries from another. Nutritional screening: No deficits noted. Tuberculosis screening: No symptoms or risk factors identified. Assessment: 12:15 General: Appears in no apparent distress. Behavior is calm, cooperative. kb3 Cardiovascular: Denies chest pain, Rhythm is sinus rhythm. Respiratory: Airway is patent Trachea midline Respiratory effort is even, unlabored, Respiratory pattern is regular. 13:00 General: Appears in no apparent distress. Behavior is calm, cooperative. Neuro: Level me1 of Consciousness is awake, alert, obeys commands, Oriented to person, place, time, situation, Appropriate for age. Cardiovascular: Denies chest pain. Respiratory: Airway is patent Respiratory effort is even, unlabored, Respiratory pattern is regular, symmetrical. GI: No signs and/or symptoms were reported involving the gastrointestinal system. : No signs and/or symptoms were reported regarding the genitourinary system. EENT: No signs and/or symptoms were reported regarding the EENT system. Derm: Skin is intact, is healthy with good turgor, Skin is normal. Musculoskeletal: Circulation, motion, and sensation intact. Range of motion: intact in all extremities. Vital Signs: 11:35 BP 140 / 95; Pulse 70; Resp 25; Temp 97.8; Pulse Ox 94% on R/A; Weight 104.33 kg; kb3 Height 5 ft. 10 in. ; Pain 5/10; 12:00 BP 140 / 94; Pulse 63; Resp 20 S; Pulse Ox 91% on 3 lpm NC; me1 13:00 BP 128 / 94; Pulse 64; Resp 18; Pulse Ox 99% on 3 lpm NC; me1 14:00 BP 134 / 92; Pulse 65; Resp 16; Pulse Ox 97% on 3 lpm NC; me1 15:00 BP 133 / 90; Pulse 69; Resp 16; Pulse Ox 95% on 3 lpm NC; me1 16:00 BP 122 / 89; Pulse 72; Resp 21; Pulse Ox 95% on 3 lpm NC; me1 11:35 Body Mass Index 33.00 (104.33 kg, 177.8 cm) kb3 11:35 Pain Scale: Adult kb3 Slater Coma Score: 16:03 Eye Response: spontaneous(4). Motor Response: obeys commands(6). Verbal Response: ned oriented(5). Total: 15. ED Course: 11:35 Patient has correct armband on for positive identification. Placed in gown. Bed in low kb3 position. Call light in reach. Provided Education on: POC. 11:39 Patient arrived in ED. cj3 11:41 Kemar Brower MD is Attending Physician. ned 11:50 No provider procedures requiring assistance completed. Inserted saline lock: 20 gauge kb3 in right antecubital area, using aseptic technique. Oxygen administration via nasal cannula \T\ 3L/min. 12:10 Naheed Cochran, MARSHALL is Primary Nurse. me1 12:10 Triage completed. kb3 12:10 Arm band placed on right wrist. kb3 12:19 XRAY Chest (1 view) In Process Unspecified. EDMS 12:25 EKG done, by ED staff, reviewed by Kemar Brower MD. kb3 13:46 UA Rfx Jeremiah Cult if indicated Sent. em1 14:33 Brain Wo Cont In Process Unspecified. EDMS 16:10 Olive Villarreal MD is Referral Physician. ned 17:01 IV discontinued, intact, bleeding controlled, No redness/swelling at site. Pressure me1 dressing applied. Administered Medications: 12:04 Drug: Decadron - Dexamethasone IVP 10 mg IVP once Route: IVP; Site: right antecubital; kb3 14:48 Follow up: Response: No adverse reaction me1 12:04 Drug: Meclizine PO 50 mg PO once Route: PO; kb3 14:48 Follow up: Response: No adverse reaction; Marked relief of symptoms me1 12:04 Drug: Ondansetron IVP 8 mg IVP once; over 2 minutes Route: IVP; Site: right antecubital;kb3 14:48 Follow up: Response: No adverse reaction; Nausea is decreased me1 12:04 Drug: NS 0.9% IV 1000 ml IV at 1000 ml once; to be given as a bolus over 60 minutes kb3 Route: IV; Rate: 1000 ml; Site: right antecubital; 14:48 Follow up: Response: No adverse reaction; IV Status: Completed infusion; IV Intake: me1 1000ml Medication: 12:15 VIS not applicable for this client. kb3 Intake: 14:48 IV: 1000ml; Total: 1000ml. me1 Outcome: 16:11 Discharge ordered by . ned 17:01 Discharged to home ambulatory, with family, pr1 17:01 Condition: stable 17:01 Discharge instructions given to patient, family, Instructed on discharge instructions, follow up and referral plans. medication usage, Demonstrated understanding of instructions, follow-up care, medications, Prescriptions given X 2, 17:02 Patient left the ED. me1 Signatures: Dispatcher [employer] EDMS Kemar Brower MD MD cha Martinez, Eric em1 Olivia Jacobs, RN RN kb3 Naheed Cochran RN RN me1 Tish Wood cj3 Corrections: (The following items were deleted from the chart) 12:11 11:35 Chief complaint: Patient states: Dizziness unrelieved by meclizine, nausea and me1 SOB since 6am kb3 12:12 12:10 Home Meds: allopurinol 300 mg Oral tablet; 3 kb3 12:12 12:10 Home Meds: Fluoxetine 80 mg Oral; 3 kb3 12:30 11:35 Chief complaint: Patient states: Dizziness unrelieved by meclizine, nausea and me1 SOB since 6am me1 15:44 14:00 BP 134 / 92; Pulse 65bpm; Resp 16bpm; Pulse Ox 97%; me1 me1
--- NOTE | 2025-04-09 16:11 | RAD REPORT ---
EXAMINATION: MRI BRAIN WITHOUT CONTRAST CLINICAL INDICATION: Male, 54 years old. DIZZINESS TECHNIQUE: Multiplanar multisequence MR images of the brain were obtained without intravenous contras t. Unless otherwise specified, incidental findings do not require dedicated imaging follow-up. COMPARISON: 12/21/2024 FINDINGS: INTRACRANIAL: Midline structures are unremarkable. Diffusion-weighted images show no acute or early subacute infarction. No abnormal brain parenchymal signal. The ventricles are normal in size and morphology. No augmented susceptibility signal abnormality. Prominent left subinsular/hypothalamic pe rivascular space, stable. There is no mass effect or midline shift. No abnormal extraaxial fluid collection. VASCULATURE: Normal signal voids in the larger intracranial arteries and dural venous sinuses. SINUSES: The paranasal sinuses and mastoid air cells are predominantly clear. BONE: The marrow signal pattern is within normal limits. IMPRESSION: No significant intracranial abnormalities.
[2025-04-09 21:48] VITALS: TEMP 97.8
[2025-04-09 21:53] VITALS: O2SAT 95
[2025-04-09 21:55] VITALS: BP 122/89
== END 2025-04-09 17:02 | disposition home or self-care (01) ==
LOC: ER 11:34
DX: H81.10 Benign paroxysmal vertigo, unspecified ear (principal); R11.0 Nausea
CPT/HCPCS: 96361; 93005; 85025; 80048; 36415; 83735; 85610; 80076; 81003; 84484; 83690; 83880; 71045; 70551; 96375; 96374; 99285; J8597; J1100; J2405; J7030